=== PATIENT | male | born 1945 | race African-American/Black ===

== ENCOUNTER 2018-06-16 18:49 | Inpatient (IN) | payer MEDICARE, MEDICAID ==
[~2018-06-16] VITALS: Ht 175.3 cm; Wt 58.7 kg
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
[2018-06-16 19:30] VITALS: BP 89/69
[2018-06-16] MEDS ORDERED: Isovue-300 100ml vial INJ PRN (19:45)
[2018-06-16] MEDS ORDERED: Isovue-370 150ml vial INJ PRN (19:45)
[2018-06-16 20:12] LABS: BASOPHILS % (AUTO) 0.9 % (0.0-2.0); EOSINOPHILS % (AUTO) 1.6 % (0.0-3.0); HEMOGLOBIN 10.2 G/DL (14.2-18.0); MEAN CORPUSCULAR VOLUME 86 FL (80-99); MONOCYTES % (AUTO) 12.8 % (1.0-10.0); NEUTROPHILS % (AUTO) 73.7 % (45.0-75.0); PLATELET COUNT 174 K/UL (150-450); RED BLOOD COUNT 3.73 M/UL (4.70-6.10); RED CELL DISTRIBUTION WIDTH 16.2 % (11.6-14.8); WHITE BLOOD COUNT 9.1 K/UL (4.8-10.8)
[2018-06-16 20:19] LABS: ANION GAP 14 mmol/L (5-15); BLOOD UREA NITROGEN 54 mg/dL (7-18); CARBON DIOXIDE 19 MMOL/L (21-32); CHLORIDE 104 MMOL/L (98-107); CREATININE 4.3 MG/DL (0.55-1.30); POTASSIUM 3.9 MMOL/L (3.5-5.1); SODIUM 137 MMOL/L (136-145)
[2018-06-16 20:25] LABS: INR 1.3 (0.9-1.1)
[2018-06-16 20:30] VITALS: BP 106/69
[2018-06-16 20:34] LABS: ALANINE AMINOTRANSFERASE 8 U/L (12-78); ALBUMIN 1.8 G/DL (3.4-5.0); ALBUMIN/GLOBULIN RATIO 0.4 (1.0-2.7); ALKALINE PHOSPHATASE 71 U/L (46-116); ASPARTATE AMINO TRANSFERASE 11 U/L (15-37); BILIRUBIN,TOTAL 0.2 MG/DL (0.2-1.0); CKMB 1.3 NG/ML (0.0-3.6); CREATINE KINASE 34 U/L (26-308); PHOSPHORUS 4.5 MG/DL (2.5-4.9)
[2018-06-16] MEDS ORDERED: CARVEDILOL3.125 MG ORAL (20:42)
[2018-06-16] MEDS ORDERED: ASPIRIN81 MG ORAL (20:42)
[2018-06-16] MEDS ORDERED: COLCRYS0.6 M1 PO ×2 (20:42→20:46)
[2018-06-16] MEDS ORDERED: CYPROHEPTADINE H4 MG PO (20:42)
[2018-06-16] MEDS ORDERED: FUROSEMIDE20 M1 ORAL (20:46)
[2018-06-16] MEDS ORDERED: GLIPIZIDE10 MG PO (20:46)
[2018-06-16] MEDS ORDERED: NORCO 10-325 T1 EACH ORAL (20:46)
[2018-06-16] MEDS ORDERED: PROCARDIA XL30 MG ORAL (20:52)
[2018-06-16] MEDS ORDERED: PREDNISONE5 M3 PO (20:52)
[2018-06-16] MEDS ORDERED: MAG-OX 400400 MG ORAL (20:52)
[2018-06-16] MEDS ORDERED: PANTOPRAZOLE SO40 MG ORAL (20:52)
[2018-06-16] MEDS ORDERED: CRESTOR20 MG ORAL (20:52)
[2018-06-16] MEDS ORDERED: ISOSORBIDE MONO30 M1 PO (20:52)
[2018-06-16] MEDS ORDERED: FISH OIL 1,2001 EAC2 PO (20:52)
[2018-06-16] MEDS ORDERED: RAPAMUNE1 MG/1 ML PO (20:55)
[2018-06-16] MEDS ORDERED: TACROLIMUS1 MG PO (20:55)
[2018-06-16] MEDS ORDERED: BRILINTA90 MG PO (20:55)
[2018-06-16] MEDS ORDERED: SOMA350 MG PO (20:55)
[2018-06-16 21:01] LABS: APPEARANCE,URINE CLOUDY; BILIRUBIN, URINE NEGATIVE (NEGATIVE); COLOR,URINE YELLOW; GLUCOSE, URINE (UA) NEGATIVE (NEGATIVE); KETONES,URINE NEGATIVE (NEGATIVE); LEUKOCYTE ESTERASE ,URINE 3+ (NEGATIVE); NITRITE,URINE NEGATIVE (NEGATIVE); PH,URINE 5 (4.5-8.0); PROTEIN,URINE 3+ (NEGATIVE); UROBILINOGEN,URINE NORMAL MG/DL (0.0-1.0)
[2018-06-16] MEDS ORDERED: cefTRIAXone 1 GM in D5W 55 ML IVPB ONE (21:15)
[2018-06-16 21:30] VITALS: BP 110/59
[2018-06-16 22:30] VITALS: BP 105/62
[2018-06-16 23:11] VITALS: BP 109/72
[2018-06-17] MEDS ORDERED: HYDROcodone/Acetamin 10/325 tab ORAL PRN
[2018-06-17] MEDS ORDERED: Albuterol/Ipratropium 3ml neb HHN PRN
[2018-06-17 04:00] VITALS: BP 125/77
[2018-06-17 05:16] LABS: BASOPHILS % (AUTO) 0.6 % (0.0-2.0); EOSINOPHILS % (AUTO) 1.2 % (0.0-3.0); HEMATOCRIT 40.5 % (42.0-52.0); HEMOGLOBIN 12.1 G/DL (14.2-18.0); MEAN CORPUSCULAR VOLUME 87 FL (80-99); MONOCYTES % (AUTO) 12.8 % (1.0-10.0); NEUTROPHILS % (AUTO) 71.3 % (45.0-75.0); PLATELET COUNT 227 K/UL (150-450); RED BLOOD COUNT 4.64 M/UL (4.70-6.10); RED CELL DISTRIBUTION WIDTH 16.4 % (11.6-14.8); WHITE BLOOD COUNT 8.9 K/UL (4.8-10.8)
[2018-06-17 05:43] LABS: ANION GAP 18 mmol/L (5-15); BLOOD UREA NITROGEN 53 mg/dL (7-18); CALCIUM 8.3 MG/DL (8.5-10.1); CARBON DIOXIDE 18 MMOL/L (21-32); CHLORIDE 104 MMOL/L (98-107); CHOLESTEROL 156 MG/DL (< 200); HDL CHOLESTEROL 25 MG/DL (40-60); SODIUM 140 MMOL/L (136-145); TRIGLYCERIDES 175 MG/DL (30-150)
[2018-06-17] MEDS: NovoLOG Insulin Flexpen SUBQ SCH ×4 (06:39→21:12)
--- NOTE | 2018-06-17 07:49 | Cardiology Progress Note ---
Assessment/Plan Assessment/Plan The patient is seen and examined, full consult note will be dictated shortly. Objective Last 24 Hour Vital Signs Date Time Temp Pulse Resp B/P (MAP) Pulse Ox O2 Delivery O2 Flow Rate FiO2 06/17/18 04:00 97.3 85 20 125/77 (93) 94 97.3 06/17/18 04:00 3.0 06/17/18 04:00 Nasal Cannula 3.0 06/17/18 04:00 85 06/17/18 01:26 Nasal Cannula 3.0 06/16/18 23:11 97.3 75 20 109/72 (84) 94 97.3 06/16/18 23:10 98.8 83 18 105/62 95 Room Air 3.0 98.8 06/16/18 22:30 98.8 83 18 105/62 95 Room Air 3.0 98.8 06/16/18 21:30 98.8 84 18 110/59 96 Room Air 3.0 98.8 06/16/18 20:30 98.8 84 20 106/69 94 Room Air 3.0 98.8 06/16/18 19:30 98.8 85 21 89/69 98 Room Air 3.0 98.8 06/16/18 19:20 80 20 Room Air 06/16/18 18:54 98.8 80 20 80/50 100 Room Air 98.8 Intake and Output 06/16/18 06/17/18 19:00 07:00 Intake Total 2000 ml Output Total 300 ml Balance 1700 ml Intake IV Total 2000 ml Output Urine Total 300 ml Laboratory Tests Test 06/16/18 19:40 06/16/18 20:40 06/16/18 21:40 06/17/18 03:57 White Blood Count 9.1 K/UL (4.8-10.8) 8.9 K/UL (4.8-10.8) Red Blood Count 3.73 M/UL (4.70-6.10) L 4.64 M/UL (4.70-6.10) L Hemoglobin 10.2 G/DL (14.2-18.0) L 12.1 G/DL (14.2-18.0) L Hematocrit 32.0 % (42.0-52.0) L 40.5 % (42.0-52.0) L Mean Corpuscular Volume 86 FL (80-99) 87 FL (80-99) Mean Corpuscular Hemoglobin 27.4 PG (27.0-31.0) 26.2 PG (27.0-31.0) L Mean Corpuscular Hemoglobin Concent 31.9 G/DL (32.0-36.0) L 30.0 G/DL (32.0-36.0) L Red Cell Distribution Width 16.2 % (11.6-14.8) H 16.4 % (11.6-14.8) H Platelet Count 174 K/UL (150-450) 227 K/UL (150-450) Mean Platelet Volume 7.3 FL (6.5-10.1) 7.8 FL (6.5-10.1) Neutrophils (%) (Auto) 73.7 % (45.0-75.0) 71.3 % (45.0-75.0) Lymphocytes (%) (Auto) 11.0 % (20.0-45.0) L 14.0 % (20.0-45.0) L Monocytes (%) (Auto) 12.8 % (1.0-10.0) H 12.8 % (1.0-10.0) H Eosinophils (%) (Auto) 1.6 % (0.0-3.0) 1.2 % (0.0-3.0) Basophils (%) (Auto) 0.9 % (0.0-2.0) 0.6 % (0.0-2.0) Prothrombin Time 14.0 SEC (9.30-11.50) H Prothromb Time International Ratio 1.3 (0.9-1.1) H Activated Partial Thromboplast Time 22 SEC (23-33) L Sodium Level 137 MMOL/L (136-145) 140 MMOL/L (136-145) Potassium Level 3.9 MMOL/L (3.5-5.1) 4.0 MMOL/L (3.5-5.1) Chloride Level 104 MMOL/L (98-107) 104 MMOL/L (98-107) Carbon Dioxide Level 19 MMOL/L (21-32) L 18 MMOL/L (21-32) L Anion Gap 14 mmol/L (5-15) 18 mmol/L (5-15) H Blood Urea Nitrogen 54 mg/dL (7-18) H 53 mg/dL (7-18) H Creatinine 4.3 MG/DL (0.55-1.30) H 4.0 MG/DL (0.55-1.30) H Estimat Glomerular Filtration Rate mL/min (>60) mL/min (>60) Glucose Level 209 MG/DL (74-106) H 147 MG/DL (74-106) H Lactic Acid Level 2.10 mmol/L (0.4-2.0) H 1.70 mmol/L (0.66-2.22) Calcium Level 8.0 MG/DL (8.5-10.1) L 8.3 MG/DL (8.5-10.1) L Phosphorus Level 4.5 MG/DL (2.5-4.9) Magnesium Level 1.9 MG/DL (1.8-2.4) Total Bilirubin 0.2 MG/DL (0.2-1.0) Aspartate Amino Transf (AST/SGOT) 11 U/L (15-37) L Alanine Aminotransferase (ALT/SGPT) 8 U/L (12-78) L Alkaline Phosphatase 71 U/L (46-116) Total Creatine Kinase 34 U/L (26-308) Creatine Kinase MB 1.3 NG/ML (0.0-3.6) Creatine Kinase MB Relative Index 3.8 Troponin I 0.124 ng/mL (0.000-0.056) Pro-B-Type Natriuretic Peptide > 73347 pg/mL (0-125) H Total Protein 6.5 G/DL (6.4-8.2) Albumin 1.8 G/DL (3.4-5.0) L Globulin 4.7 g/dL Albumin/Globulin Ratio 0.4 (1.0-2.7) L Lipase 122 U/L (73-393) Urine Color Yellow Urine Appearance Cloudy Urine pH 5 (4.5-8.0) Urine Specific [place] 1.015 (1.005-1.035) Urine Protein 3+ (NEGATIVE) H Urine Glucose (UA) Negative (NEGATIVE) Urine Ketones Negative (NEGATIVE) Urine Occult Blood 4+ (NEGATIVE) H Urine Nitrite Negative (NEGATIVE) Urine Bilirubin Negative (NEGATIVE) Urine Urobilinogen Normal MG/DL (0.0-1.0) Urine Leukocyte Esterase 3+ (NEGATIVE) H Urine RBC 10-15 /HPF (0 - 0) H Urine WBC Tntc /HPF (0 - 0) H Urine Squamous Epithelial Cells Many /LPF (NONE/OCC) H Urine Bacteria Many /HPF (NONE) H Triglycerides Level 175 MG/DL (30-150) H Cholesterol Level 156 MG/DL (< 200) LDL Cholesterol 104 mg/dL (<100) H HDL Cholesterol 25 MG/DL (40-60) L Cholesterol/HDL Ratio 6.2 (3.3-4.4) H Tacrolimus (Prograf) Level Pending Test 06/17/18 06:40 Urine Eosinophils Pending Urine Random Creatinine Pending Urine Random Sodium 32 mmol/L (20-110) Urine Creatinine 168.0 MG/DL (30.0-125.0) H Urine Uric Acid Pending Kelvin Tenorio MD Jun 17, 2018 07:49
[2018-06-17 08:00] VITALS: BP 128/77
--- NOTE | 2018-06-17 08:24 | Diagnostic Imaging Report ---
Indication: Reason For Exam: SOB Technique: One view of the chest Comparison: none Findings: Lungs and pleural spaces are clear. Monitoring device projects over the left chest. There is evidence of prior CABG. The heart size is normal Impression: No acute process
--- NOTE | 2018-06-17 08:49 | Consultation ---
Consult Note Assessment/Plan DICT # [id number] Cam Moran MD Jun 17, 2018 08:49
[2018-06-17] MEDS: Imdur 30mg tab ORAL SCH (08:58)
[2018-06-17] MEDS: Aspirin Baby 81mg ORAL SCH (08:59)
[2018-06-17] MEDS: Cyproheptadine HCl 4mg tab ORAL SCH ×3 (09:00→17:16)
[2018-06-17] MEDS ORDERED: SIROLIMUS 0.5 MG ORAL SCH (09:00)
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
--- NOTE | 2018-06-17 09:26 | Diagnostic Imaging Report ---
Indications: Altered mental status and weakness Technique: Spiral acquisitions obtained through the brain. Angled axial and coronal 5 x 5 mm slices were reconstructed. Total dose length product 1322.86 mGycm. CTDI vol(s) 70.38 mGy. Dose reduction achieved using automated exposure control Comparison: Findings: Two old lacunar infarcts are seen in the right lentiform nucleus. There is an old infarct in the right cerebellar hemisphere. There is an old lacunar infarct in the right side of the midbrain. No acute intrarenal hemorrhage or edema, mass effect, nor midline shift. There is age-related enlargement of ventricles and extra-axial CSF spaces. There is periventricular deep white matter low-attenuation consistent with chronic ischemic change. Visualized orbits and sinuses are unremarkable. The calvarium is intact Impression: Chronic and age-related changes. Multiple old infarcts. Negative for acute intracranial bleed or mass effect This agrees with the preliminary interpretation provided overnight by [facility]. The CT scanner at [facility] is accredited by the [employer] and the scans are performed using protocols designed to limit radiation exposure to as low as reasonably achievable to attain images of sufficient resolution adequate for diagnostic evaluation.
[2018-06-17] MEDS: SIROLIMUS 0.5 MG ORAL SCH (09:35)
[2018-06-17 10:47] LABS: % IRON SATURATION 8 % (15-50); IRON 15 ug/dL (50-175); TOTAL IRON BINDING CAPACITY 197 ug/dL (250-450)
[2018-06-17 11:16] LABS: FERRITIN 170 NG/ML (8-388); LACTATE DEHYDROGENASE 226 U/L (81-234)
[2018-06-17] MEDS ORDERED: Azithromycin 250mg tab ORAL SCH (11:17)
--- NOTE | 2018-06-17 11:48 | Consultation ---
History of Present Illness General Date patient seen: Jun 17, 2018 Chief Complaint: Dyspnea/Respdistress Present Illness HPI The pt is 72 yo male with hx of cognitive impairment. the patient presents with complaints of weakness and confusion, the pt was a poor historian. It is noted that the pt was aaox4 however the pt didnt know the month nor the date. the pt is forgetful and has cognitive impairment. The pt stated that he was depressed about his situation. The pt was a poor historian the pt stated that he leaves at home and has a child care associate. Allergies: Coded Allergies: No Known Allergies (Unverified , 06/16/18) Medication History Scheduled Aspirin* (Aspirin*), 81 MG ORAL DAILY, (Reported) Carvedilol* (Carvedilol*), 3.125 MG ORAL EVERY 12 HOURS, (Reported) Cyproheptadine Hcl (Cyproheptadine Hcl), 4 MG PO BID, (Reported) Fish Oil/Dha/Epa (Fish Oil 1,200 Mg Fish Oil), 1 EACH PO BID, (Reported) Furosemide* (Lasix*), 20 MG ORAL DAILY, (Reported) Glipizide (Glipizide), 10 MG PO BID, (Reported) Isosorbide Mononitrate (Isosorbide Mononitrate Er), 30 MG PO DAILY, (Reported) Magnesium Oxide (Magnesium Oxide), 400 MG ORAL BID, (Reported) Nifedipine Xl* (Procardia Xl*), 60 MG ORAL DAILY, (Reported) Pantoprazole* (Pantoprazole*), 40 MG ORAL DAILY, (Reported) Prednisone (Prednisone), 5 MG PO DAILY, (Reported) Rosuvastatin Calcium* (Crestor*), 20 MG ORAL HS, (Reported) Sirolimus (Rapamune), 1 MG PO DAILY, (Reported) Ticagrelor* (Brilinta*), 90 MG PO BID, (Reported) Scheduled PRN Carisoprodol* (Soma*), 350 MG PO TID PRN for Muscle Spasm, (Reported) Colchicine (Colcrys), 0.6 MG PO Q1HR PRN for gout flares, (Reported) Hydrocodone Bit/Acetaminophen 10-325* ([place] 10-325*), 1 TAB ORAL Q6H PRN for For Pain, (Reported) Miscellaneous Medications Tacrolimus (Tacrolimus), 4 MG PO, (Reported) Patient History Limited by: medical condition History Provided By: Patient, Medical Record, PMD Healthcare decision maker N Resuscitation status Full Code Advanced Directive on File No Past Medical/Surgical History Past Medical/Surgical History: (1) Cardiomegaly (2) Hypotension Review of Systems Psychiatric: Reports: prior hx, anxiety Physical Exam General Appearance: no apparent distress, alert Neurologic: oriented x 3, depressed affect Last 24 Hour Vital Signs Date Time Temp Pulse Resp B/P (MAP) Pulse Ox O2 Delivery O2 Flow Rate FiO2 06/17/18 08:59 95 128/77 06/17/18 08:58 128/77 06/17/18 08:30 94 Nasal Cannula 3.0 32 06/17/18 08:30 Nasal Cannula 3.0 32 06/17/18 08:00 95 06/17/18 08:00 Nasal Cannula 3.0 06/17/18 08:00 97.9 95 20 128/77 (94) 95 97.9 06/17/18 04:00 97.3 85 20 125/77 (93) 94 97.3 06/17/18 04:00 3.0 06/17/18 04:00 Nasal Cannula 3.0 06/17/18 04:00 85 06/17/18 01:26 Nasal Cannula 3.0 06/16/18 23:11 97.3 75 20 109/72 (84) 94 97.3 06/16/18 23:10 98.8 83 18 105/62 95 Room Air 3.0 98.8 06/16/18 22:30 98.8 83 18 105/62 95 Room Air 3.0 98.8 06/16/18 21:30 98.8 84 18 110/59 96 Room Air 3.0 98.8 06/16/18 20:30 98.8 84 20 106/69 94 Room Air 3.0 98.8 06/16/18 19:30 98.8 85 21 89/69 98 Room Air 3.0 98.8 06/16/18 19:20 80 20 Room Air 06/16/18 18:54 98.8 80 20 80/50 100 Room Air 98.8 Intake and Output 06/16/18 06/17/18 19:00 07:00 Intake Total 2000 ml Output Total 300 ml Balance 1700 ml Intake IV Total 2000 ml Output Urine Total 300 ml Laboratory Tests Test 06/16/18 19:40 06/16/18 20:40 06/16/18 21:40 06/17/18 03:57 White Blood Count 9.1 K/UL (4.8-10.8) 8.9 K/UL (4.8-10.8) Red Blood Count 3.73 M/UL (4.70-6.10) L 4.64 M/UL (4.70-6.10) L Hemoglobin 10.2 G/DL (14.2-18.0) L 12.1 G/DL (14.2-18.0) L Hematocrit 32.0 % (42.0-52.0) L 40.5 % (42.0-52.0) L Mean Corpuscular Volume 86 FL (80-99) 87 FL (80-99) Mean Corpuscular Hemoglobin 27.4 PG (27.0-31.0) 26.2 PG (27.0-31.0) L Mean Corpuscular Hemoglobin Concent 31.9 G/DL (32.0-36.0) L 30.0 G/DL (32.0-36.0) L Red Cell Distribution Width 16.2 % (11.6-14.8) H 16.4 % (11.6-14.8) H Platelet Count 174 K/UL (150-450) 227 K/UL (150-450) Mean Platelet Volume 7.3 FL (6.5-10.1) 7.8 FL (6.5-10.1) Neutrophils (%) (Auto) 73.7 % (45.0-75.0) 71.3 % (45.0-75.0) Lymphocytes (%) (Auto) 11.0 % (20.0-45.0) L 14.0 % (20.0-45.0) L Monocytes (%) (Auto) 12.8 % (1.0-10.0) H 12.8 % (1.0-10.0) H Eosinophils (%) (Auto) 1.6 % (0.0-3.0) 1.2 % (0.0-3.0) Basophils (%) (Auto) 0.9 % (0.0-2.0) 0.6 % (0.0-2.0) Prothrombin Time 14.0 SEC (9.30-11.50) H Prothromb Time International Ratio 1.3 (0.9-1.1) H Activated Partial Thromboplast Time 22 SEC (23-33) L Sodium Level 137 MMOL/L (136-145) 140 MMOL/L (136-145) Potassium Level 3.9 MMOL/L (3.5-5.1) 4.0 MMOL/L (3.5-5.1) Chloride Level 104 MMOL/L (98-107) 104 MMOL/L (98-107) Carbon Dioxide Level 19 MMOL/L (21-32) L 18 MMOL/L (21-32) L Anion Gap 14 mmol/L (5-15) 18 mmol/L (5-15) H Blood Urea Nitrogen 54 mg/dL (7-18) H 53 mg/dL (7-18) H Creatinine 4.3 MG/DL (0.55-1.30) H 4.0 MG/DL (0.55-1.30) H Estimat Glomerular Filtration Rate mL/min (>60) mL/min (>60) Glucose Level 209 MG/DL (74-106) H 147 MG/DL (74-106) H Lactic Acid Level 2.10 mmol/L (0.4-2.0) H 1.70 mmol/L (0.66-2.22) Calcium Level 8.0 MG/DL (8.5-10.1) L 8.3 MG/DL (8.5-10.1) L Phosphorus Level 4.5 MG/DL (2.5-4.9) Magnesium Level 1.9 MG/DL (1.8-2.4) Total Bilirubin 0.2 MG/DL (0.2-1.0) Aspartate Amino Transf (AST/SGOT) 11 U/L (15-37) L Alanine Aminotransferase (ALT/SGPT) 8 U/L (12-78) L Alkaline Phosphatase 71 U/L (46-116) Total Creatine Kinase 34 U/L (26-308) Creatine Kinase MB 1.3 NG/ML (0.0-3.6) Creatine Kinase MB Relative Index 3.8 Troponin I 0.124 ng/mL (0.000-0.056) Pro-B-Type Natriuretic Peptide > 36654 pg/mL (0-125) H Total Protein 6.5 G/DL (6.4-8.2) Albumin 1.8 G/DL (3.4-5.0) L Globulin 4.7 g/dL Albumin/Globulin Ratio 0.4 (1.0-2.7) L Lipase 122 U/L (73-393) Urine Color Yellow Urine Appearance Cloudy Urine pH 5 (4.5-8.0) Urine Specific [place] 1.015 (1.005-1.035) Urine Protein 3+ (NEGATIVE) H Urine Glucose (UA) Negative (NEGATIVE) Urine Ketones Negative (NEGATIVE) Urine Occult Blood 4+ (NEGATIVE) H Urine Nitrite Negative (NEGATIVE) Urine Bilirubin Negative (NEGATIVE) Urine Urobilinogen Normal MG/DL (0.0-1.0) Urine Leukocyte Esterase 3+ (NEGATIVE) H Urine RBC 10-15 /HPF (0 - 0) H Urine WBC Tntc /HPF (0 - 0) H Urine Squamous Epithelial Cells Many /LPF (NONE/OCC) H Urine Bacteria Many /HPF (NONE) H Triglycerides Level 175 MG/DL (30-150) H Cholesterol Level 156 MG/DL (< 200) LDL Cholesterol 104 mg/dL (<100) H HDL Cholesterol 25 MG/DL (40-60) L Cholesterol/HDL Ratio 6.2 (3.3-4.4) H Tacrolimus (Prograf) Level Pending Test 06/17/18 06:40 06/17/18 09:00 06/17/18 09:30 Urine Eosinophils None seen Urine Random Creatinine Pending Urine Random Sodium 32 mmol/L (20-110) Urine Creatinine 168.0 MG/DL (30.0-125.0) H Urine Uric Acid Pending Erythrocyte Sedimentation Rate 95 MM/HR (0-20) H Reticulocyte Count 1.6 % (0.0-2.0) Fibrinogen 797 mg/dL (200-400) H D-Dimer 10.06 mg/L FEU (0.00-0.49) H Iron Level 15 ug/dL (50-175) L Total Iron Binding Capacity 197 ug/dL (250-450) L Percent Iron Saturation 8 % (15-50) L Unsaturated Iron Binding 182 ug/dL (112-346) Ferritin 170 NG/ML (8-388) Lactate Dehydrogenase 226 U/L (81-234) Troponin I 0.258 ng/mL (0.000-0.056) Vitamin B12 Level 1076 PG/ML (193-986) H Folate 10.2 NG/ML (8.6-58.9) Arterial Blood pH 7.393 (7.350-7.450) Arterial Blood Partial Pressure CO2 27.7 mmHg (35.0-45.0) L Arterial Blood Partial Pressure O2 65.3 mmHg (75.0-100.0) L Arterial Blood HCO3 16.5 mmol/L (22.0-26.0) L Arterial Blood Oxygen Saturation 90.3 % (92.0-98.0) L Arterial Blood Base Excess -7.1 Francois Test Positive Microbiology Date/Time Source Procedure Growth Status 06/16/18 20:40 Urine,Clean Catch Urine Culture - Preliminary NO GROWTH Resulted Height (Feet): 5 Height (Inches): 9.00 Weight (Pounds): 129 Medications Current Medications Medications (Trade) Dose Ordered Sig/Trung Route PRN Reason Start Time Stop Time Status Last Admin Dose Admin Acetaminophen (Tylenol) 650 mg Q6H PRN ORAL Mild Pain/Temp > 100.5 06/17/18 00:00 07/17/18 00:00 Acetaminophen/ Hydrocodone Bitart ([place] 10/325) 1 tab Q4H PRN ORAL For Pain 06/17/18 00:00 06/24/18 00:00 Albuterol/ Ipratropium (Albuterol/ Ipratropium) 3 ml Q4H PRN HHN Shortness of Breath 06/17/18 00:00 06/22/18 00:00 Aspirin (ASA) 81 mg DAILY ORAL 06/17/18 09:00 07/17/18 08:59 06/17/18 08:59 Azithromycin (Zithromax) 250 mg DAILY ORAL 06/18/18 09:00 06/25/18 08:59 Azithromycin (Zithromax) 500 mg ONCE ORAL 06/17/18 11:17 06/17/18 12:17 Carvedilol (Coreg) 3.125 mg EVERY 12 HOURS ORAL 06/17/18 09:00 07/17/18 08:59 06/17/18 08:59 Ceftriaxone Sodium 1 gm/ Dextrose 55 ml @ 110 mls/hr Q24H IVPB 06/17/18 21:00 06/24/18 20:59 Clopidogrel Bisulfate (Plavix) 75 mg DAILY ORAL 06/18/18 09:00 07/18/18 08:59 Cyproheptadine HCl (Periactin) 4 mg THREE TIMES A DAY ORAL 06/17/18 09:00 07/17/18 08:59 06/17/18 09:00 Dextrose (Dextrose 50%) 25 ml STAT PRN IV Hypoglycemia 06/17/18 00:00 07/17/18 00:00 Dextrose (Dextrose 50%) 50 ml STAT PRN IV Hypoglycemia 06/17/18 00:00 07/17/18 00:00 Insulin Aspart (NovoLOG) AC+HS SUBQ 06/17/18 06:30 07/17/18 06:29 06/17/18 06:39 Iopamidol (Isovue-300 100ml) 100 ml NOW PRN INJ Radiology Procedure 06/16/18 19:45 Iopamidol (Isovue-370 150ml) 150 ml NOW PRN INJ Radiology Procedure 06/16/18 19:45 06/18/18 19:36 Isosorbide Mononitrate (Imdur) 30 mg DAILY ORAL 06/17/18 09:00 07/17/18 08:59 06/17/18 08:58 Non-Formulary Medication (Non-Formulary Med) 1 ea DAILY ORAL 06/17/18 09:00 07/17/18 08:59 UNV Non-Formulary Medication (Non-Formulary Med) 1 ea DAILY ORAL 06/17/18 09:00 07/17/18 08:59 UNV Non-Formulary Medication (Non-Formulary Med) 1 ea DAILY ORAL 06/17/18 09:00 07/17/18 08:59 UNV Ondansetron HCl (Zofran) 4 mg Q6H PRN IVP Nausea & Vomiting 06/17/18 00:00 07/17/18 00:00 Pantoprazole (Protonix) 40 mg EVERY 12 HOURS ORAL 06/17/18 09:00 07/17/18 08:59 06/17/18 08:59 Prednisone (predniSONE) 5 mg DAILY ORAL 06/17/18 09:00 07/17/18 08:59 06/17/18 08:59 Sirolimus (Rapamune) 1 mg DAILY ORAL 06/17/18 09:30 07/17/18 09:29 06/17/18 09:35 Tacrolimus (Prograf) 3 mg Q24HRS ORAL 06/17/18 16:00 07/17/18 15:59 Tacrolimus (Prograf) 4 mg DAILY ORAL 06/17/18 09:00 07/17/18 08:59 06/17/18 09:00 Assessment/Plan Status: stable, progressing Assessment/Plan encephalopathy improving anxiety d/o -Ativan prn the pt may benefit from short term sniff Umu Rojas MD Jun 17, 2018 11:48
[2018-06-17 12:00] VITALS: BP 107/63
--- NOTE | 2018-06-17 13:25 | Diagnostic Imaging Report ---
Indication: Abnormal renal function tests Technique: Grayscale and duplex images of the kidneys, retroperitoneum, and bladder were obtained. Comparison: none Findings: Right kidney measures 9.5 cm in length. Left kidney measures 8.2 cm in length. Both kidneys demonstrate increased echogenicity. No hydronephrosis. There are renal cysts bilaterally. Normal inferior vena cava. Bladder is mildly distended. Secondary to prostate volume is 25 mL. Prostate contains calcifications Impression: Echogenic kidneys, consistent with medical renal disease Negative for hydronephrosis. Incidental finding bilateral renal cysts
--- NOTE | 2018-06-17 13:39 | General Progress Note ---
Assessment/Plan Assessment/Plan Addendum to todays consult note Spiculated 2.7 cm mass in the superior segment of the right lower lobe with a central cavity. Differential considerations include postinflammatory lesion versus cavitating lung carcinoma, Small right pleural effusion --> further management if needs biopsy per pulm, Dr. Moran will discuss Subjective Allergies: Coded Allergies: No Known Allergies (Unverified , 06/16/18) Objective Last 24 Hour Vital Signs Date Time Temp Pulse Resp B/P (MAP) Pulse Ox O2 Delivery O2 Flow Rate FiO2 06/17/18 12:00 Nasal Cannula 3.0 06/17/18 12:00 91 06/17/18 12:00 97.7 91 20 107/63 (78) 96 97.7 06/17/18 08:59 95 128/77 06/17/18 08:58 128/77 06/17/18 08:30 94 Nasal Cannula 3.0 32 06/17/18 08:30 Nasal Cannula 3.0 32 06/17/18 08:00 95 06/17/18 08:00 Nasal Cannula 3.0 06/17/18 08:00 97.9 95 20 128/77 (94) 95 97.9 06/17/18 04:00 97.3 85 20 125/77 (93) 94 97.3 06/17/18 04:00 3.0 06/17/18 04:00 Nasal Cannula 3.0 06/17/18 04:00 85 06/17/18 01:26 Nasal Cannula 3.0 06/16/18 23:11 97.3 75 20 109/72 (84) 94 97.3 06/16/18 23:10 98.8 83 18 105/62 95 Room Air 3.0 98.8 06/16/18 22:30 98.8 83 18 105/62 95 Room Air 3.0 98.8 06/16/18 21:30 98.8 84 18 110/59 96 Room Air 3.0 98.8 06/16/18 20:30 98.8 84 20 106/69 94 Room Air 3.0 98.8 06/16/18 19:30 98.8 85 21 89/69 98 Room Air 3.0 98.8 06/16/18 19:20 80 20 Room Air 06/16/18 18:54 98.8 80 20 80/50 100 Room Air 98.8 Intake and Output 06/16/18 06/17/18 19:00 07:00 Intake Total 2000 ml Output Total 300 ml Balance 1700 ml Intake IV Total 2000 ml Output Urine Total 300 ml Laboratory Tests 06/16/18 19:40: White Blood Count 9.1, Red Blood Count 3.73L, Hemoglobin 10.2L, Hematocrit 32.0L , Mean Corpuscular Volume 86, Mean Corpuscular Hemoglobin 27.4, Mean Corpuscular Hemoglobin Concent 31.9L, Red Cell Distribution Width 16.2H, Platelet Count 174, Mean Platelet Volume 7.3, Neutrophils (%) (Auto) 73.7, Lymphocytes (%) (Auto) 11.0L, Monocytes (%) (Auto) 12.8H, Eosinophils (%) (Auto ) 1.6, Basophils (%) (Auto) 0.9, Prothrombin Time 14.0H, Prothromb Time International Ratio 1.3H, Activated Partial Thromboplast Time 22L, Sodium Level 137, Potassium Level 3.9, Chloride Level 104, Carbon Dioxide Level 19L, Anion Gap 14, Blood Urea Nitrogen 54H, Creatinine 4.3H, Estimat Glomerular Filtration Rate , Glucose Level 209H, Lactic Acid Level 2.10H, Calcium Level 8.0L, Phosphorus Level 4.5, Magnesium Level 1.9, Total Bilirubin 0.2, Aspartate Amino Transf (AST/SGOT) 11L, Alanine Aminotransferase (ALT/SGPT) 8L, Alkaline Phosphatase 71, Total Creatine Kinase 34, Creatine Kinase MB 1.3, Creatine Kinase MB Relative Index 3.8, Troponin I 0.124H, Pro-B-Type Natriuretic Peptide > [id number], Total Protein 6.5, Albumin 1.8L, Globulin 4.7, Albumin/Globulin Ratio 0.4L, Lipase 122 06/16/18 20:40: Urine Color Yellow, Urine Appearance Cloudy, Urine pH 5, Urine Specific [place] 1.015, Urine Protein 3+H, Urine Glucose (UA) Negative, Urine Ketones Negative, Urine Occult Blood 4+H, Urine Nitrite Negative, Urine Bilirubin Negative, Urine Urobilinogen Normal, Urine Leukocyte Esterase 3+H, Urine RBC 10-15H, Urine WBC TntcH, Urine Squamous Epithelial Cells ManyH, Urine Bacteria ManyH 06/16/18 21:40: Lactic Acid Level 1.70 06/17/18 03:57: White Blood Count 8.9, Red Blood Count 4.64L, Hemoglobin 12.1L, Hematocrit 40.5L , Mean Corpuscular Volume 87, Mean Corpuscular Hemoglobin 26.2L, Mean Corpuscular Hemoglobin Concent 30.0L, Red Cell Distribution Width 16.4H, Platelet Count 227, Mean Platelet Volume 7.8, Neutrophils (%) (Auto) 71.3, Lymphocytes (%) (Auto) 14.0L, Monocytes (%) (Auto) 12.8H, Eosinophils (%) (Auto ) 1.2, Basophils (%) (Auto) 0.6, Sodium Level 140, Potassium Level 4.0, Chloride Level 104, Carbon Dioxide Level 18L, Anion Gap 18H, Blood Urea Nitrogen 53H, Creatinine 4.0H, Estimat Glomerular Filtration Rate , Glucose Level 147H, Calcium Level 8.3L, Triglycerides Level 175H, Cholesterol Level 156 , LDL Cholesterol 104H, HDL Cholesterol 25L, Cholesterol/HDL Ratio 6.2H, Tacrolimus (Prograf) Level [Pending] 06/17/18 06:40: Urine Eosinophils None seen, Urine Random Creatinine [Pending], Urine Random Sodium 32, Urine Creatinine 168.0H, Urine Uric Acid [Pending] 06/17/18 09:00: Erythrocyte Sedimentation Rate 95H, Reticulocyte Count 1.6, Fibrinogen 797H, D- Dimer 10.06H, Iron Level 15L, Total Iron Binding Capacity 197L, Percent Iron Saturation 8L, Unsaturated Iron Binding 182, Ferritin 170, Lactate Dehydrogenase 226, Troponin I 0.258H, Vitamin B12 Level 1076H, Folate 10.2 06/17/18 09:30: Arterial Blood pH 7.393, Arterial Blood Partial Pressure CO2 27.7L, Arterial Blood Partial Pressure O2 65.3L, Arterial Blood HCO3 16.5L, Arterial Blood Oxygen Saturation 90.3L, Arterial Blood Base Excess -7.1, Francois Test Positive Height (Feet): 5 Height (Inches): 9.00 Weight (Pounds): 129 Tunde Silva MD Jun 17, 2018 13:39
--- NOTE | 2018-06-17 14:49 | Cardiology Report ---
APPROVED REPORT EXAM: Two-dimensional and M-mode echocardiogram with Doppler and color Doppler. INDICATION Cardiomyopathy M-Mode DIMENSIONS IVSd1.8 (0.7-1.1cm)Left Atrium (MM)3.2 (1.6-4.0cm) LVDd3.5 (3.5-5.6cm)Aortic Root3.5 (2.0-3.7cm) PWd1.2 (0.7-1.1cm)Aortic Cusp Exc.1.8 (1.5-2.0cm) IVSs2.2 cm LVDs2.8 (2.5-4.0cm) PWs1.1 cm Global left ventricular hypokinesis . Normal left ventricular chamber size . Left ventricular ejection fraction estimated to be 40-45 %. Moderate left ventricular hypertrophy by 2-D. No evidence of pericardial effusion. All other cardiac chamber sizes are within normal limits. Focal aortic valve sclerosis with adequate cusp excursion. Thickened mitral valve leaflets with normal excursion. Mitral annulus and aortic root calcification. Pulmonic valve not well visualized. Normal tricuspid valve structure. IVC dilated at 1.9 cm without physiologic collapse suggestive of increased RA pressure. A color flow and spectral Doppler study was performed and revealed: No aortic regurgitation. Trace to Moderate mitral regurgitation. Mitral inflow velocities indicates possible pseudo normalization pattern implying moderately elevated left atrial pressure (Grade II ). Moderate tricuspid regurgitation Present . Tricuspid systolic velocities suggests peak right ventricular systolic pressure of 88 mmHg,consistent with severe pulmonary hypertension. Mild Pulmonic regurgitation present.
--- NOTE | 2018-06-17 14:53 | Cardiology Report ---
APPROVED REPORT EKG Measurement Heart [id number] Normal sinus rhythm Lateral infarct, age undetermined Prolonged QT Abnormal ECG
--- NOTE | 2018-06-17 14:54 | Cardiology Report ---
APPROVED REPORT EKG Measurement Heart [id number] Normal sinus rhythm Rightward axis Anteroseptal infarct, age undetermined Prolonged QT Abnormal ECG
--- NOTE | 2018-06-17 15:19 | Consultation ---
Consult Note Consult Note asked to eval for renal failure Chief Complaint: Dyspnea/Respdistress Patient presents with complaints of weakness Patient himself is a fairly poor historian Is not able to provide much history Denies any chest pain he did report some shortness of breath Patient has a patch on the left upper chest was not aware why he had that on Patient denies any recent hospitalizations Does not have medication list Denies any focal weakness denies any fevers denies any cough History of present illness however remains limited given his ability to provide history Hx Cardiac Problems: Yes - Heart transplant 1987 Hx Pacemaker: Yes patient confused- has UTI Has a base line Cr of 3 as per [facility] records now worse Assessment/Plan Renal Failure- Acute on Chronic Cardiomyopathy- s/p Cardiac transplant Pulmonary HTN 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
[2018-06-17 16:00] VITALS: BP 129/71
--- NOTE | 2018-06-17 16:45 | Consultation ---
DATE OF CONSULTATION: 06/17/2018 PULMONARY CONSULTATION CONSULTING PHYSICIAN: Cam Moran M.D. REFERRING PHYSICIAN: Jovanny Washington M.D. REASON FOR CONSULTATION: Dyspnea and shortness of breath. HISTORY OF PRESENT ILLNESS: The patient is a 72-year-old male with a history of orthotopic heart transplant in 04/04/1998 with known transplant CAD, status post recent drug-eluting stent in [place] x1 to the RCA for 80% stenosis and x2 to the mid LAD. At that time, the patient's PA pressure was 47/25. He had been in his usual state of health until a few days ago when he started noticing some generalized confusion and shortness of breath. He is a poor historian. He has a ZIO patch, but he is unsure why or when it may have been placed at the [facility]. In the ER, he was hypotensive and initially received fluids. He was noted to have UTI and acute kidney injury on top of his CKD. He has been admitted for further management. Overnight, he has been afebrile. Vitals have been stable. He has been saturating well on 3 liters. Chest x-ray is unchanged from prior other than the UA. Labs are remarkable for MÓNICA with creatinine of 4.3 on admission compared to baseline of high 2, low 3. He also had elevated BNP and troponin. PAST MEDICAL HISTORY: 1. Orthotopic heart transplant . 2. Transplant CAD. 3. CKD. 4. Diabetes. 5. Stroke in the past. PAST SURGICAL HISTORY: 1. Orthotopic heart transplant, 04/04/1998. 2. Multiple interventions. ALLERGIES: No known drug allergies. MEDICATIONS: Prior to admission, medications reviewed. Current medications reviewed. SOCIAL HISTORY: Denies any tobacco, alcohol, or drug use. FAMILY HISTORY: Noncontributory. REVIEW OF SYSTEMS: Negative other than history of present illness. PHYSICAL EXAMINATION: VITAL SIGNS: Temperature 97.3, pulse 75, blood pressure 109/72, respiratory rate 20, and saturating 94% on 3 liters. GENERAL: This is a well-developed, well-nourished male, in no acute distress. Awake, alert, and oriented x3. HEENT: Normocephalic and atraumatic. Oropharynx is clear with moist mucous membranes. NECK: Supple without lymphadenopathy or JVD. CHEST: Fairly clear to auscultation bilaterally. There is a ZIO patch on. HEART: Regular rate and rhythm. ABDOMEN: Soft, nontender, and nondistended. EXTREMITIES: No cyanosis, clubbing or edema. ANCILLARY DATA: White count 8.9, hemoglobin 12.1, and platelet count 227. INR 1.3. Sodium 140, potassium 4.0, chloride 104, bicarb 18, gap 18, BUN 53, creatinine 4.0, glucose 147. Lactic acid 2.1 on presentation, 1.7 now. Calcium 8.3, phosphorus 4.5, magnesium 1.9. Total bilirubin 0.2, AST , ALT 8. Troponin 0.124. BNP greater than 35,000. Albumin 1.8. Triglycerides 175, total cholesterol 156, LDL 104, HDL 25. Chest x-ray, no significant findings. Sternotomy changes are noted. Urinalysis, the patient has 3+ leukocyte esterase, too many to count whites and too many to count bacteria. ASSESSMENT: The patient is a 72-year-old male with a history of orthotopic heart transplant 04/04/1998 with transplant coronary artery disease, status post recent drug-eluting stent x1 in the RCA and x2 in the mid LAD 03/19/2018, post transplant diabetes, CKD, prior CVA, presenting with UTI and hypotension. He does not appear to be in decompensated heart failure at that time though he does have some RV depression. I am evaluating the patient at the bedside with Dr. Tenorio, tire rebuilder. An echocardiogram is being done at the same time. The patient's PA pressure is not significantly changed from prior and he does not have elevated filling pressures. PROBLEM LIST: 1. Orthotopic heart transplant, 04/04/1998. 2. Transplant coronary artery disease with recent PCI 03/19/2018 with drug-eluting stent x2 to the mid LAD and x1 to the RCA. 3. MÓNICA on CKD. 4. UTI. 5. Pulmonary hypertension and RV failure. 6. Diabetes. 7. Elevated cardiac biomarkers. TREATMENT PLAN: 1. Continue PCU level care. 2. Gentle IV fluid hydration. 3. Continue antibiotics. 4. Follow up cultures. 5. Hold Lasix. 6. Continue transplant medications including tacrolimus 4 mg in the morning/3 mg at night, Rapamune and prednisone 5 mg a day. 7. Follow up tacrolimus level. 8. Follow up repeat EKG and troponin. 9. Continue dual anti-platelet therapy. 10. Continue remainder of cardiac regimen. 11. If stroke is up trending, we will consider starting a heparin drip. 12. Follow up duplex and D-dimer. 13. If duplex negative and D-dimer negative, we will get a VQ scan. 14. Aspiration precautions. 15. NPO. 16. DVT prophylaxis, heparin subcutaneous. 17. A transplant team at [facility] notified. 18. Low threshold to transfer to [facility] to the Cardiomyopathy service. 19. Case discussed with Dr. Tenorio, at bedside, Dr. Washington and Dr. Hayes, the ER attending overnight. 20. [facility] Cardiomyopathy service notified. 21. Greater than 100 minutes spent in the care of this patient. Cam Moran M.D. DR: SIDDHARTHA JOB#: [id number] CC:
[2018-06-17 20:00] VITALS: BP 108/67
[2018-06-17] MEDS ORDERED: cefTRIAXone 1 GM in D5W 55 ML IVPB SCH (21:00)
[2018-06-17] MEDS ORDERED: Atorvastatin 20mg tab ORAL SCH (21:00)
--- NOTE | 2018-06-17 22:00 | Consultation ---
DATE OF CONSULTATION: 06/17/2018 INFECTIOUS DISEASE CONSULTATION CONSULTING PHYSICIAN: Sami Leiva M.D. PRIMARY ATTENDING PHYSICIAN: Jovanny Washington M.D. REASON FOR CONSULT: Lung cavitary mass lesions. HISTORY OF PRESENT ILLNESS: This is a 72-year-old male, admitted yesterday from home, complaining of weakness. The patient had heart transplant 20 years ago and taking immunosuppressive medication. He had lactic acidosis and seems to have acute renal failure. A CT scan of the chest showed cavitary lung lesion. PAST MEDICAL HISTORY: Significant for diabetes mellitus type 2, getting oral hypoglycemic agent at home, COPD, and heart transplant 20 years ago. MEDICATIONS: Getting Plavix, tacrolimus, sirolimus, carvedilol, Protonix, and some non-formalin medications, prednisone 5 mg daily, aspirin, cyproheptadine, isosorbide, albuterol and ipratropium, Tylenol, and [place]. ALLERGIES: No known drug allergies. SOCIAL HISTORY: He has a remote history of smoking before heart transplant. No drinking. Smokes weed sometimes. Single. Has a daughter. REVIEW OF SYSTEMS: No fever. No chills. He thinks he has gradual weight loss. Had weakness around one week ago. No coughing. No shortness of breath. No nausea. No vomiting. No diarrhea. No problem passing urine. PHYSICAL EXAMINATION: VITAL SIGNS: Temperature 97.9, pulse 95, and blood pressure 128/77. GENERAL APPEARANCE: No acute distress. Seems to be weak. HEAD AND NECK: [place] conjunctiva. No oral lesion. Slightly dry mouth. HEART: A scar of previous surgery. Has some monitor that was placed one week ago in [facility]. LUNGS: Clear. ABDOMEN: Soft and nontender. EXTREMITIES: No edema. LABORATORY AND DIAGNOSTIC DATA: WBC 8.9, hemoglobin 12.1, hematocrit 40.5, and platelets 227,000. Sodium 140, potassium 4, chloride 104, bicarb 18, BUN 53, creatinine 4, and glucose 147. CT scan of the head, chronic ____ changes with multiple old infarcts. CT scan of the chest, abdomen, and pelvis showed a spiculated mass in the right lower lobe with central cavity, COPD, bronchiectasis, areas of scarring, distended gallbladder without evidence of wall thickening and gallstone, colon diverticulosis, and non-obstructing right kidney calculus. IMPRESSION: Elderly male with a lung mass with cavitary lesion. The patient is immunocompromised because of taking immunosuppressive medication. Has chronic obstructive pulmonary disease and diabetes mellitus. Had lactic acidosis at the time of admission that resolved. Has colonic diverticulosis and distended gallbladder without cholecystitis and is status post heart transplant. RECOMMENDATION: We will try to obtain more information from [facility] and [facility]. We will start on ceftriaxone. We will follow up the cultures. We will discuss the case with signal worker helper. At the end of my exam, I thank Dr. Washington for involving me in the care of this patient. Sami Leiva M.D. DR: DOC JOB#: [id number] CC:
--- NOTE | 2018-06-17 23:15 | Consultation ---
DATE OF CONSULTATION: 06/17/2018 NOTE: POOR AUDIO HEMATOLOGY/ONCOLOGY CONSULTATION CONSULTING PHYSICIAN: Tunde Silva M.D. REQUESTING PHYSICIAN: Jovanny Washington M.D. REASON FOR CONSULTATION: Evaluation of anemia as well as coagulopathy. IDENTIFICATION DATA: Dear Dr. Washington, The patient is a pleasant 72-year-old male with history of heart transplant in 1987, history of pacemaker placement, at this time presents with shortness of breath, respiratory distress. Chest x-ray completed acute infiltrative process. The patient noted to be anemic at this time. Hematology Service consulted for further evaluation and treatment. In addition, the patient has coagulopathy. This is the first admission here, seen by Cardiology Service. PAST MEDICAL HISTORY: Heart transplant in 1987 and history of UTI. PAST SURGICAL HISTORY: . ALLERGIES: No known drug allergies. FAMILY HISTORY: . SOCIAL HISTORY: No alcohol, tobacco, or illicit drug use. REVIEW OF SYSTEMS: CONSTITUTIONAL: No fever, chills, or night sweats. SKIN: No rashes, bumps, or itching. HEENT: No headache, hearing or visual changes. BREASTS: No lumps, pain, or discharge. PULMONARY: No cough, sputum . GASTROINTESTINAL: No nausea, vomiting, or diarrhea. GENITOURINARY: No dysuria, frequency, or urgency. MUSCULOSKELETAL: No joint swelling, muscle pain, or trauma. PHYSICAL EXAMINATION: VITAL SIGNS: Reviewed. GENERAL: No acute distress. PULMONARY: Decreased breath sounds. CARDIOVASCULAR: Regular rate. No S3 or S4. ABDOMEN: Soft, nontender, and nondistended. EXTREMITIES: No cyanosis, swelling, or edema noted. LABORATORY DATA: Labs reviewed, hemoglobin 10.5 on admission and INR of 1.3. ASSESSMENT AND RECOMMENDATIONS: 1. Anemia due to underlying chronic disease in addition to myelosuppression. Obtain anemia panel. 2. Monocytosis, likely secondary to reactive process. The patient has been checked for TB in the past. today. 3. Hypertension. . 4. likely secondary to sepsis secondary to urinary tract infection. 5. Heart transplant history. . 6. Urinary tract infection, currently has been started on antibiotics. 7. Shortness of breath. CT of the chest negative. I appreciate the consultation. Tunde Silva M.D. DR: ANANYA JOB#: [id number] CC:
--- NOTE | 2018-06-17 23:30 | History and Physical Report ---
DATE OF ADMISSION: 06/16/2018 HISTORY OF PRESENT ILLNESS: The patient is admitted for hypotension and cardiomyopathy. The patient is status post heart transplant since [address] [facility], comes in with weakness and shortness of breath for a couple of days. The patient is admitted for hypotension. The patient also recently had STEMI at [facility] about a month ago. He also came in with acute elevation in BUN and creatinine and possible UTI as well. The patient does have some dysuria, but mainly complains weakness and shortness of breath. Denies worsening orthopnea. Denies any chest pain. Also complains of foot pain. PAST MEDICAL HISTORY: Significant for cardiomyopathy, chronic pain syndrome, hypotension, history of gout, history of NIDDM, hypertension, GERD, and hyperlipidemia. PAST SURGICAL HISTORY: Heart transplant in 1997 at [facility]. MEDICATIONS: Aspirin, Coreg, cyproheptadine, fish oil, Lasix, glipizide, isosorbide mononitrate, nifedipine, Protonix, prednisone, Crestor, sirolimus, and Brilinta. FAMILY HISTORY: Does have history of heart disease and hypertension. SOCIAL HISTORY: The patient does have history of smoking and history of drug abuse. Denies alcohol abuse. He lives at home with girlfriend. REVIEW OF SYSTEMS: HEENT: Denies headaches. RESPIRATORY: He reports shortness of breath for a couple of days. Denies cough. Denies flu-like symptoms. CARDIOVASCULAR: Denies chest pain. Denies orthopnea. Denies palpitation. GASTROINTESTINAL: Denies nausea, vomiting, and diarrhea. He does have heartburn at times. EXTREMITY: Reports of foot pain. MANAGER ER: No change in vision or speech pattern. Feels very weak for the past couple of days. Generalized weakness. No diplopia. No headaches. PHYSICAL EXAMINATION: VITAL SIGNS: Temperature is 97.3, pulse is 85, and blood pressure 125/77. HEENT: PERRLA. NECK: Supple. No lymphadenopathy. CHEST: Clear to auscultation. CARDIOVASCULAR: He does have heart murmur. GASTROINTESTINAL: No organomegaly. Positive bowel sounds. Abdomen is soft. EXTREMITIES: A 1+ edema in both lower extremities. Has generalized weakness. Reflexes are equal on both sides. LABORATORY DATA: WBC of 9.1, hemoglobin 10.2, and platelets 174,000. Sodium 140, potassium 4, chloride 104, BUN of 53, creatinine 4, and glucose of 147. ASSESSMENT: 1. Shortness of breath. 2. Weakness. 3. Cardiomyopathy, status post cardiac implant. 4. Azotemia. 5. Acute renal failure. PLAN: The patient the patient was in [facility]. I have asked Dr. Moran, Dr. Leiva, Dr. Silva, Dr. Tenorio, and Dr. Covington to see the patient for the management of above-mentioned diagnoses and treatment. The patient is very weak at this point. We will follow the patient very closely. Jovanny Washington M.D. DR: ANDRZEJ JOB#: [id number] CC:
[2018-06-18] VITALS: BP 110/72
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
[2018-06-18 04:00] VITALS: BP 130/84
[2018-06-18 04:50] LABS: BASOPHILS % (AUTO) 0.6 % (0.0-2.0); EOSINOPHILS % (AUTO) 0.9 % (0.0-3.0); HEMATOCRIT 30.6 % (42.0-52.0); HEMOGLOBIN 9.4 G/DL (14.2-18.0); MEAN CORPUSCULAR VOLUME 87 FL (80-99); MONOCYTES % (AUTO) 13.7 % (1.0-10.0); NEUTROPHILS % (AUTO) 71.8 % (45.0-75.0); PLATELET COUNT 229 K/UL (150-450); RED CELL DISTRIBUTION WIDTH 16.5 % (11.6-14.8); WHITE BLOOD COUNT 8.3 K/UL (4.8-10.8)
[2018-06-18 05:25] LABS: PHOSPHORUS 3.7 MG/DL (2.5-4.9)
[2018-06-18 05:27] LABS: ALANINE AMINOTRANSFERASE 15 U/L (12-78); ALBUMIN 2.6 G/DL (3.4-5.0); ALBUMIN/GLOBULIN RATIO 0.5 (1.0-2.7); ALKALINE PHOSPHATASE 78 U/L (46-116); ANION GAP 18 mmol/L (5-15); ASPARTATE AMINO TRANSFERASE 17 U/L (15-37); BILIRUBIN,TOTAL 0.3 MG/DL (0.2-1.0); BLOOD UREA NITROGEN 52 mg/dL (7-18); CALCIUM 8.6 MG/DL (8.5-10.1); CARBON DIOXIDE 17 MMOL/L (21-32); CHLORIDE 106 MMOL/L (98-107); POTASSIUM 3.4 MMOL/L (3.5-5.1); SODIUM 141 MMOL/L (136-145)
[2018-06-18] MEDS: NovoLOG Insulin Flexpen SUBQ SCH ×3 (06:43→16:21)
[2018-06-18 08:00] VITALS: BP 125/70
[2018-06-18] MEDS ORDERED: Allopurinol 100mg Tab ORAL SCH (08:00)
--- NOTE | 2018-06-18 08:31 | General Progress Note ---
Assessment/Plan Status: unchanged Assessment/Plan # Anemia due to underlying chronic disease in addition to myelosuppression. --> Anemia panel has been reviewed. Will trend CBC daily. --> Continue to closely monitor for improvement. --> Hgb goal >7 # Speculated 2.7 cm mass in the superior segment of the right lower lobe with a central cavity. Differential considerations include postinflammatory lesion versus cavitating lung carcinoma, Small right pleural effusion. --> further management if needs biopsy per pulm, Dr. Moran will discuss. # Monocytosis, likely secondary to reactive process. he patient has been checked for TB in the past. --> likely secondary to sepsis and UTI. --> Continue to closely monitor WBC count sundeep improvement. # Elevated D-d-didmer - started on unfractionated heparin until V/Q scan back --> appreciate pulm recs, await results of v/q scan # Hypertension. # Heart transplant history. # Urinary tract infection, currently has been started on antibiotics. # Shortness of breath. The time the note was entered does not necessarily correspond to the time the patient was seen. Subjective Date patient seen: Jun 18, 2018 ROS Limited/Unobtainable: Yes Hematologic/Lymphatic: Reports: anemia Allergies: Coded Allergies: No Known Allergies (Unverified , 06/16/18) All Systems: reviewed and negative except above Subjective Pt is awake and alert. No acute events. Vitals are stable. Objective Last 24 Hour Vital Signs Date Time Temp Pulse Resp B/P (MAP) Pulse Ox O2 Delivery O2 Flow Rate FiO2 06/18/18 08:21 92 06/18/18 04:00 92 06/18/18 04:00 Nasal Cannula 3.0 06/18/18 04:00 98.1 93 20 130/84 (99) 94 98.1 06/18/18 00:00 97.4 93 20 110/72 (85) 97 97.4 06/18/18 00:00 93 06/18/18 00:00 Nasal Cannula 3.0 06/17/18 20:53 97 108/67 06/17/18 20:06 Nasal Cannula 3.0 32 06/17/18 20:06 96 Nasal Cannula 3.0 32 06/17/18 20:00 Nasal Cannula 3.0 06/17/18 20:00 97.5 95 20 108/67 (81) 94 97.5 06/17/18 20:00 97 06/17/18 16:00 98.2 94 20 129/71 (90) 92 98.2 06/17/18 16:00 Nasal Cannula 3.0 06/17/18 16:00 101 06/17/18 12:00 Nasal Cannula 3.0 06/17/18 12:00 91 06/17/18 12:00 97.7 91 20 107/63 (78) 96 97.7 06/17/18 08:59 95 128/77 06/17/18 08:58 128/77 06/17/18 08:30 94 Nasal Cannula 3.0 32 06/17/18 08:30 Nasal Cannula 3.0 32 Intake and Output 06/17/18 06/18/18 19:00 07:00 Intake Total 1000 ml 55 ml Output Total 200 ml Balance 1000 ml -145 ml Intake Oral 500 ml IV Total 500 ml 55 ml Output Urine Total 200 ml # Voids 2 Laboratory Tests 06/17/18 09:00: Erythrocyte Sedimentation Rate 95H, Reticulocyte Count 1.6, Fibrinogen 797H, D- Dimer 10.06H, Iron Level 15L, Total Iron Binding Capacity 197L, Percent Iron Saturation 8L, Unsaturated Iron Binding 182, Ferritin 170, Lactate Dehydrogenase 226, Troponin I 0.258H, Vitamin B12 Level 1076H, Folate 10.2 06/17/18 09:30: Arterial Blood pH 7.393, Arterial Blood Partial Pressure CO2 27.7L, Arterial Blood Partial Pressure O2 65.3L, Arterial Blood HCO3 16.5L, Arterial Blood Oxygen Saturation 90.3L, Arterial Blood Base Excess -7.1, Francois Test Positive 06/17/18 15:15: Troponin I 0.220H, C-Reactive Protein, Quantitative 12.6H 06/17/18 21:00: Troponin I 0.179H 06/18/18 01:05: Histoplasma Antigen [Pending] 06/18/18 03:53: White Blood Count 8.3, Red Blood Count 3.50L, Hemoglobin 9.4L, Hematocrit 30.6L , Mean Corpuscular Volume 87, Mean Corpuscular Hemoglobin 26.8L, Mean Corpuscular Hemoglobin Concent 30.7L, Red Cell Distribution Width 16.5H, Platelet Count 229, Mean Platelet Volume 8.1, Neutrophils (%) (Auto) 71.8, Lymphocytes (%) (Auto) 13.0L, Monocytes (%) (Auto) 13.7H, Eosinophils (%) (Auto ) 0.9, Basophils (%) (Auto) 0.6, Sodium Level 141, Potassium Level 3.4L, Chloride Level 106, Carbon Dioxide Level 17L, Anion Gap 18H, Blood Urea Nitrogen 52H, Creatinine 4.0H, Estimat Glomerular Filtration Rate , Glucose Level 120H, Uric Acid 12.0H, Calcium Level 8.6, Phosphorus Level 3.7, Magnesium Level 2.1, Total Bilirubin 0.3, Aspartate Amino Transf (AST/SGOT) 17, Alanine Aminotransferase (ALT/SGPT) 15, Alkaline Phosphatase 78, Troponin I 0.206H, Pro- B-Type Natriuretic Peptide [id number], Total Protein 7.5, Albumin 2.6L, Globulin 4.9, Albumin/Globulin Ratio 0.5L, Thyroid Stimulating Hormone (TSH) 0.468, Coccidioides Antibody (Comp Fix) [Pending], TB Test (T-Spot) [Pending], TB Test Nil Control (T-Spot) [Pending], TB Test Panel A (T-Spot) [Pending], TB Test Panel B (T-Spot) [Pending], TB Test Positive Control (T-Spot) [Pending] Height (Feet): 5 Height (Inches): 9.00 Weight (Pounds): 129 General Appearance: no apparent distress, alert EENT: PERRL/EOMI Neck: normal alignment Cardiovascular: normal peripheral pulses Respiratory/Chest: no respiratory distress Abdomen: soft Tunde Silva MD Jun 18, 2018 08:31
[2018-06-18] MEDS: Cyproheptadine HCl 4mg tab ORAL SCH ×2 (08:37→13:35)
[2018-06-18] MEDS: Aspirin Baby 81mg ORAL SCH (08:37)
[2018-06-18] MEDS: SIROLIMUS 0.5 MG ORAL SCH (08:38)
[2018-06-18] MEDS: Imdur 30mg tab ORAL SCH (08:39)
--- NOTE | 2018-06-18 08:49 | Pulmonology Progress Note ---
Assessment/Plan Problems: (1) UTI (urinary tract infection) (2) MÓNICA (acute kidney injury) (3) Elevated d-dimer (4) NSTEMI (non-ST elevated myocardial infarction) (5) CAD (coronary artery disease) (6) Heart transplant, orthotopic, status (7) Cardiomyopathy Assessment/Plan ASSESSMENT: The patient is a 72-year-old male with a history of orthotopic heart transplant 04/04/1998 with transplant coronary artery disease, status post recent drug-eluting stent x1 in the RCA and x2 in the mid LAD 2017, post transplant diabetes, CKD, prior CVA, presenting with UTI and hypotension. He does not appear to be in decompensated heart failure at that time though he does have some RV depression. Given his elevated d-dimer and PASP, we will start IVUH for now while awaiting a STAT VQ scan. PROBLEM LIST: 1. Orthotopic heart transplant, 04/04/1998. 2. Transplant coronary artery disease with recent PCI 03/19/2018 with drug- eluting stent x2 to the mid LAD and x1 to the RCA. 3. MÓNICA on CKD. 4. UTI. 5. Pulmonary hypertension and RV failure. 6. Diabetes. 7. Elevated cardiac biomarkers. 8. Elevated D-dimer and worsening PH, concerning for an acute PE TREATMENT PLAN: 1. Start IVUH 2. F/U STAT VQ 2. Gentle diuresis 3. Continue antibiotics. 4. Follow up cultures. 5. F/U prograf level 6. Continue transplant medications including tacrolimus 4 mg in the morning/3 mg at night, Rapamune 1 mg and prednisone 5 mg a day. 7. Continue DAPT and cardiac meds 8. Transfer to [facility], D/W Dr. Josey Moran MD Subjective Allergies: Coded Allergies: No Known Allergies (Unverified , 06/16/18) Subjective I/O not accurate: 1999/ (had at least 2 unmeasured urinations) AFVSS, stable on 3L TTE LVEF 40-45% with global hypokinesis PASP 88 with mod TR, IVC 1.9cm not collapsible D-dimer > 10k, Duplex negative, IVUH started /// Renal US no hydro + SOB, no cough, no CP, no wheezing, no F/C, inderjit PO Objective Last 24 Hour Vital Signs Date Time Temp Pulse Resp B/P (MAP) Pulse Ox O2 Delivery O2 Flow Rate FiO2 06/18/18 08:21 92 06/18/18 08:00 Nasal Cannula 3.0 06/18/18 04:00 92 06/18/18 04:00 Nasal Cannula 3.0 06/18/18 04:00 98.1 93 20 130/84 (99) 94 98.1 06/18/18 00:00 97.4 93 20 110/72 (85) 97 97.4 06/18/18 00:00 93 06/18/18 00:00 Nasal Cannula 3.0 06/17/18 20:53 97 108/67 06/17/18 20:06 Nasal Cannula 3.0 32 06/17/18 20:06 96 Nasal Cannula 3.0 32 06/17/18 20:00 Nasal Cannula 3.0 06/17/18 20:00 97.5 95 20 108/67 (81) 94 97.5 06/17/18 20:00 97 06/17/18 16:00 98.2 94 20 129/71 (90) 92 98.2 06/17/18 16:00 Nasal Cannula 3.0 06/17/18 16:00 101 06/17/18 12:00 Nasal Cannula 3.0 06/17/18 12:00 91 06/17/18 12:00 97.7 91 20 107/63 (78) 96 97.7 06/17/18 08:59 95 128/77 06/17/18 08:58 128/77 Intake and Output 06/17/18 06/18/18 19:00 07:00 Intake Total 1000 ml 55 ml Output Total 200 ml Balance 1000 ml -145 ml Intake Oral 500 ml IV Total 500 ml 55 ml Output Urine Total 200 ml # Voids 2 General Appearance: WD/WN, no acute distress HEENT: normocephalic, atraumatic, anicteric, mucous membranes moist Respiratory/Chest: chest wall non-tender, lungs clear, normal breath sounds, no respiratory distress Cardiovascular: normal peripheral pulses, normal rate, regular rhythm, other - P2 Abdomen: normal bowel sounds, soft, non tender, no organomegaly, non distended , no mass Extremities: no cyanosis, no clubbing, no edema Microbiology Date/Time Source Procedure Growth Status 06/16/18 19:40 Blood Blood Culture - Preliminary NO GROWTH AFTER 24 HOURS Resulted 06/16/18 19:25 Blood Blood Culture - Preliminary NO GROWTH AFTER 24 HOURS Resulted 06/16/18 20:40 Urine,Clean Catch Urine Culture - Preliminary NO GROWTH Resulted Laboratory Tests 06/17/18 09:00: Erythrocyte Sedimentation Rate 95H, Reticulocyte Count 1.6, Fibrinogen 797H, D- Dimer 10.06H, Iron Level 15L, Total Iron Binding Capacity 197L, Percent Iron Saturation 8L, Unsaturated Iron Binding 182, Ferritin 170, Lactate Dehydrogenase 226, Troponin I 0.258H, Vitamin B12 Level 1076H, Folate 10.2 06/17/18 09:30: Arterial Blood pH 7.393, Arterial Blood Partial Pressure CO2 27.7L, Arterial Blood Partial Pressure O2 65.3L, Arterial Blood HCO3 16.5L, Arterial Blood Oxygen Saturation 90.3L, Arterial Blood Base Excess -7.1, Francois Test Positive 06/17/18 15:15: Troponin I 0.220H, C-Reactive Protein, Quantitative 12.6H 06/17/18 21:00: Troponin I 0.179H 06/18/18 01:05: Histoplasma Antigen [Pending] 06/18/18 03:53: White Blood Count 8.3, Red Blood Count 3.50L, Hemoglobin 9.4L, Hematocrit 30.6L , Mean Corpuscular Volume 87, Mean Corpuscular Hemoglobin 26.8L, Mean Corpuscular Hemoglobin Concent 30.7L, Red Cell Distribution Width 16.5H, Platelet Count 229, Mean Platelet Volume 8.1, Neutrophils (%) (Auto) 71.8, Lymphocytes (%) (Auto) 13.0L, Monocytes (%) (Auto) 13.7H, Eosinophils (%) (Auto ) 0.9, Basophils (%) (Auto) 0.6, Sodium Level 141, Potassium Level 3.4L, Chloride Level 106, Carbon Dioxide Level 17L, Anion Gap 18H, Blood Urea Nitrogen 52H, Creatinine 4.0H, Estimat Glomerular Filtration Rate , Glucose Level 120H, Uric Acid 12.0H, Calcium Level 8.6, Phosphorus Level 3.7, Magnesium Level 2.1, Total Bilirubin 0.3, Aspartate Amino Transf (AST/SGOT) 17, Alanine Aminotransferase (ALT/SGPT) 15, Alkaline Phosphatase 78, Troponin I 0.206H, Pro- B-Type Natriuretic Peptide 130590F, Total Protein 7.5, Albumin 2.6L, Globulin 4.9, Albumin/Globulin Ratio 0.5L, Thyroid Stimulating Hormone (TSH) 0.468, Coccidioides Antibody (Comp Fix) [Pending], TB Test (T-Spot) [Pending], TB Test Nil Control (T-Spot) [Pending], TB Test Panel A (T-Spot) [Pending], TB Test Panel B (T-Spot) [Pending], TB Test Positive Control (T-Spot) [Pending] Current Medications Medications (Trade) Dose Ordered Sig/Trung Route PRN Reason Start Time Stop Time Status Last Admin Dose Admin Acetaminophen (Tylenol) 650 mg Q6H PRN ORAL Mild Pain/Temp > 100.5 06/17/18 00:00 07/17/18 00:00 Acetaminophen/ Hydrocodone Bitart ([place] 10/325) 1 tab Q4H PRN ORAL For Pain 06/17/18 00:00 06/24/18 00:00 Albuterol/ Ipratropium (Albuterol/ Ipratropium) 3 ml Q4H PRN HHN Shortness of Breath 06/17/18 00:00 06/22/18 00:00 Allopurinol (Zyloprim) 200 mg ONCE ORAL 06/18/18 08:00 06/18/18 09:00 Aspirin (ASA) 81 mg DAILY ORAL 06/17/18 09:00 07/17/18 08:59 06/17/18 08:59 Atorvastatin Calcium (Lipitor) 20 mg BEDTIME ORAL 06/17/18 21:00 07/17/18 20:59 06/17/18 20:52 Azithromycin (Zithromax) 250 mg DAILY ORAL 06/18/18 09:00 06/25/18 08:59 Carvedilol (Coreg) 3.125 mg EVERY 12 HOURS ORAL 06/17/18 09:00 07/17/18 08:59 06/17/18 20:53 Ceftriaxone Sodium 1 gm/ Dextrose 55 ml @ 110 mls/hr Q24H IVPB 06/17/18 21:00 06/24/18 20:59 06/17/18 20:52 Clopidogrel Bisulfate (Plavix) 75 mg DAILY ORAL 06/18/18 09:00 07/18/18 08:59 Cyproheptadine HCl (Periactin) 4 mg THREE TIMES A DAY ORAL 06/17/18 09:00 07/17/18 08:59 06/17/18 17:16 Dextrose (Dextrose 50%) 25 ml STAT PRN IV Hypoglycemia 06/17/18 00:00 07/17/18 00:00 Dextrose (Dextrose 50%) 50 ml STAT PRN IV Hypoglycemia 06/17/18 00:00 07/17/18 00:00 Insulin Aspart (NovoLOG) AC+HS SUBQ 06/17/18 06:30 07/17/18 06:29 06/18/18 06:43 Iopamidol (Isovue-300 100ml) 100 ml NOW PRN INJ Radiology Procedure 06/16/18 19:45 Iopamidol (Isovue-370 150ml) 150 ml NOW PRN INJ Radiology Procedure 06/16/18 19:45 06/18/18 19:36 Isosorbide Mononitrate (Imdur) 30 mg DAILY ORAL 06/17/18 09:00 07/17/18 08:59 06/17/18 08:58 Ondansetron HCl (Zofran) 4 mg Q6H PRN IVP Nausea & Vomiting 06/17/18 00:00 07/17/18 00:00 Pantoprazole (Protonix) 40 mg EVERY 12 HOURS ORAL 06/17/18 09:00 07/17/18 08:59 06/17/18 20:52 Potassium Chloride (K-Dur) 20 meq ONCE ORAL 06/18/18 08:15 06/18/18 09:15 Prednisone (predniSONE) 5 mg DAILY ORAL 06/17/18 09:00 07/17/18 08:59 06/17/18 08:59 Sirolimus (Rapamune) 1 mg DAILY ORAL 06/17/18 09:30 07/17/18 09:29 06/17/18 09:35 Tacrolimus (Prograf) 3 mg Q24HRS ORAL 06/17/18 16:00 07/17/18 15:59 06/17/18 16:04 Tacrolimus (Prograf) 4 mg DAILY ORAL 06/17/18 09:00 07/17/18 08:59 06/17/18 09:00 Cam Moran MD Jun 18, 2018 08:49
[2018-06-18] MEDS ORDERED: Azithromycin 250mg tab ORAL SCH (09:00)
[2018-06-18] MEDS ORDERED: Heparin 5000 units/ml inj IV SCH ×2 (09:08→16:53)
[2018-06-18] MEDS ORDERED: Heparin 25,000u/D5W 500ml 500 ML IV SCH ×2 (10:00→17:02)
[2018-06-18 10:06] LABS: BASOPHILS % (AUTO) 0.7 % (0.0-2.0); EOSINOPHILS % (AUTO) 1.4 % (0.0-3.0); HEMATOCRIT 32.5 % (42.0-52.0); HEMOGLOBIN 9.8 G/DL (14.2-18.0); MEAN CORPUSCULAR VOLUME 87 FL (80-99); MONOCYTES % (AUTO) 16.7 % (1.0-10.0); NEUTROPHILS % (AUTO) 68.3 % (45.0-75.0); PLATELET COUNT 229 K/UL (150-450); RED BLOOD COUNT 3.74 M/UL (4.70-6.10); RED CELL DISTRIBUTION WIDTH 16.3 % (11.6-14.8); WHITE BLOOD COUNT 8.3 K/UL (4.8-10.8)
--- NOTE | 2018-06-18 10:28 | Nephrology Progress Note ---
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 Encephalopathy UTI Anemia HypoAlbuminemia 3+ proteinuria Plan Albumin Bollous as needed Avoid Nephrotoxics- AntiBiotics monitor renal parameters one dose Zaroxyllin Subjective ROS Limited/Unobtainable: No Constitutional: Reports: malaise, weakness Objective Objective Last 24 Hour Vital Signs Date Time Temp Pulse Resp B/P (MAP) Pulse Ox O2 Delivery O2 Flow Rate FiO2 06/18/18 08:39 125/70 06/18/18 08:38 91 125/70 06/18/18 08:21 92 06/18/18 08:00 97.9 91 18 125/70 (88) 95 97.9 06/18/18 08:00 Nasal Cannula 3.0 06/18/18 04:00 92 06/18/18 04:00 Nasal Cannula 3.0 06/18/18 04:00 98.1 93 20 130/84 (99) 94 98.1 06/18/18 00:00 97.4 93 20 110/72 (85) 97 97.4 06/18/18 00:00 93 06/18/18 00:00 Nasal Cannula 3.0 06/17/18 20:53 97 108/67 06/17/18 20:06 Nasal Cannula 3.0 32 06/17/18 20:06 96 Nasal Cannula 3.0 32 06/17/18 20:00 Nasal Cannula 3.0 06/17/18 20:00 97.5 95 20 108/67 (81) 94 97.5 06/17/18 20:00 97 06/17/18 16:00 98.2 94 20 129/71 (90) 92 98.2 06/17/18 16:00 Nasal Cannula 3.0 06/17/18 16:00 101 06/17/18 12:00 Nasal Cannula 3.0 06/17/18 12:00 91 06/17/18 12:00 97.7 91 20 107/63 (78) 96 97.7 Intake and Output 06/17/18 06/18/18 18:59 06:59 Intake Total 1000 ml 55 ml Output Total 200 ml Balance 1000 ml -145 ml Intake Oral 500 ml IV Total 500 ml 55 ml Output Urine Total 200 ml # Voids 2 Laboratory Tests 06/17/18 15:15: Troponin I 0.220H, C-Reactive Protein, Quantitative 12.6H 06/17/18 21:00: Troponin I 0.179H 06/18/18 01:05: Histoplasma Antigen [Pending] 06/18/18 03:53: Troponin I 0.206H, White Blood Count 8.3, Red Blood Count 3.50L, Hemoglobin 9.4L , Hematocrit 30.6L, Mean Corpuscular Volume 87, Mean Corpuscular Hemoglobin 26.8L, Mean Corpuscular Hemoglobin Concent 30.7L, Red Cell Distribution Width 16.5H, Platelet Count 229, Mean Platelet Volume 8.1, Neutrophils (%) (Auto) 71.8 , Lymphocytes (%) (Auto) 13.0L, Monocytes (%) (Auto) 13.7H, Eosinophils (%) ( Auto) 0.9, Basophils (%) (Auto) 0.6, Sodium Level 141, Potassium Level 3.4L, Chloride Level 106, Carbon Dioxide Level 17L, Anion Gap 18H, Blood Urea Nitrogen 52H, Creatinine 4.0H, Estimat Glomerular Filtration Rate , Glucose Level 120H, Uric Acid 12.0H, Calcium Level 8.6, Phosphorus Level 3.7, Magnesium Level 2.1, Total Bilirubin 0.3, Aspartate Amino Transf (AST/SGOT) 17, Alanine Aminotransferase (ALT/SGPT) 15, Alkaline Phosphatase 78, Pro-B-Type Natriuretic Peptide 032633M, Total Protein 7.5, Albumin 2.6L, Globulin 4.9, Albumin/ Globulin Ratio 0.5L, Thyroid Stimulating Hormone (TSH) 0.468, Coccidioides Antibody (Comp Fix) [Pending], TB Test (T-Spot) [Pending], TB Test Nil Control ( T-Spot) [Pending], TB Test Panel A (T-Spot) [Pending], TB Test Panel B (T-Spot) [Pending], TB Test Positive Control (T-Spot) [Pending] 06/18/18 09:30: White Blood Count 8.3, Red Blood Count 3.74L, Hemoglobin 9.8L, Hematocrit 32.5L , Mean Corpuscular Volume 87, Mean Corpuscular Hemoglobin 26.1L, Mean Corpuscular Hemoglobin Concent 30.1L, Red Cell Distribution Width 16.3H, Platelet Count 229, Mean Platelet Volume 7.3, Neutrophils (%) (Auto) 68.3, Lymphocytes (%) (Auto) 13.0L, Monocytes (%) (Auto) 16.7H, Eosinophils (%) (Auto ) 1.4, Basophils (%) (Auto) 0.7, Activated Partial Thromboplast Time 28 Height (Feet): 5 Height (Inches): 9.00 Weight (Pounds): 129 General Appearance: no apparent distress, lethargic Cardiovascular: tachycardia Respiratory/Chest: decreased breath sounds Abdomen: distended Marlon Covington MD Jun 18, 2018 10:28
[2018-06-18 12:00] VITALS: BP 133/78
--- NOTE | 2018-06-18 12:20 | General Progress Note ---
Assessment/Plan Status: stable Assessment/Plan encephalopathy improving anxiety d/o -Ativan prn the pt may benefit from short term sniff Subjective Date patient seen: Jun 18, 2018 Neurologic/Psychiatric: Reports: anxiety, depressed Allergies: Coded Allergies: No Known Allergies (Unverified , 06/16/18) Subjective the pt more lucid however forgetful and disoriented to place Objective Last 24 Hour Vital Signs Date Time Temp Pulse Resp B/P (MAP) Pulse Ox O2 Delivery O2 Flow Rate FiO2 06/18/18 12:00 Nasal Cannula 3.0 06/18/18 08:39 125/70 06/18/18 08:38 91 125/70 06/18/18 08:21 92 06/18/18 08:00 97.9 91 18 125/70 (88) 95 97.9 06/18/18 08:00 Nasal Cannula 3.0 06/18/18 04:00 92 06/18/18 04:00 Nasal Cannula 3.0 06/18/18 04:00 98.1 93 20 130/84 (99) 94 98.1 06/18/18 00:00 97.4 93 20 110/72 (85) 97 97.4 06/18/18 00:00 93 06/18/18 00:00 Nasal Cannula 3.0 06/17/18 20:53 97 108/67 06/17/18 20:06 Nasal Cannula 3.0 32 06/17/18 20:06 96 Nasal Cannula 3.0 32 06/17/18 20:00 Nasal Cannula 3.0 06/17/18 20:00 97.5 95 20 108/67 (81) 94 97.5 06/17/18 20:00 97 06/17/18 16:00 98.2 94 20 129/71 (90) 92 98.2 06/17/18 16:00 Nasal Cannula 3.0 06/17/18 16:00 101 Intake and Output 06/17/18 06/18/18 19:00 07:00 Intake Total 1000 ml 55 ml Output Total 200 ml Balance 1000 ml -145 ml Intake Oral 500 ml IV Total 500 ml 55 ml Output Urine Total 200 ml # Voids 2 Laboratory Tests 06/17/18 15:15: Troponin I 0.220H, C-Reactive Protein, Quantitative 12.6H 06/17/18 21:00: Troponin I 0.179H 06/18/18 01:05: Histoplasma Antigen [Pending] 06/18/18 03:53: Troponin I 0.206H, White Blood Count 8.3, Red Blood Count 3.50L, Hemoglobin 9.4L , Hematocrit 30.6L, Mean Corpuscular Volume 87, Mean Corpuscular Hemoglobin 26.8L, Mean Corpuscular Hemoglobin Concent 30.7L, Red Cell Distribution Width 16.5H, Platelet Count 229, Mean Platelet Volume 8.1, Neutrophils (%) (Auto) 71.8 , Lymphocytes (%) (Auto) 13.0L, Monocytes (%) (Auto) 13.7H, Eosinophils (%) ( Auto) 0.9, Basophils (%) (Auto) 0.6, Sodium Level 141, Potassium Level 3.4L, Chloride Level 106, Carbon Dioxide Level 17L, Anion Gap 18H, Blood Urea Nitrogen 52H, Creatinine 4.0H, Estimat Glomerular Filtration Rate , Glucose Level 120H, Uric Acid 12.0H, Calcium Level 8.6, Phosphorus Level 3.7, Magnesium Level 2.1, Total Bilirubin 0.3, Aspartate Amino Transf (AST/SGOT) 17, Alanine Aminotransferase (ALT/SGPT) 15, Alkaline Phosphatase 78, Pro-B-Type Natriuretic Peptide 283737T, Total Protein 7.5, Albumin 2.6L, Globulin 4.9, Albumin/ Globulin Ratio 0.5L, Thyroid Stimulating Hormone (TSH) 0.468, Coccidioides Antibody (Comp Fix) [Pending], TB Test (T-Spot) [Pending], TB Test Nil Control ( T-Spot) [Pending], TB Test Panel A (T-Spot) [Pending], TB Test Panel B (T-Spot) [Pending], TB Test Positive Control (T-Spot) [Pending] 06/18/18 09:30: White Blood Count 8.3, Red Blood Count 3.74L, Hemoglobin 9.8L, Hematocrit 32.5L , Mean Corpuscular Volume 87, Mean Corpuscular Hemoglobin 26.1L, Mean Corpuscular Hemoglobin Concent 30.1L, Red Cell Distribution Width 16.3H, Platelet Count 229, Mean Platelet Volume 7.3, Neutrophils (%) (Auto) 68.3, Lymphocytes (%) (Auto) 13.0L, Monocytes (%) (Auto) 16.7H, Eosinophils (%) (Auto ) 1.4, Basophils (%) (Auto) 0.7, Activated Partial Thromboplast Time 28 Height (Feet): 5 Height (Inches): 9.00 Weight (Pounds): 129 General Appearance: no apparent distress, alert Umu Rojas MD Jun 18, 2018 12:20
--- NOTE | 2018-06-18 12:45 | Cardiology Progress Note ---
Assessment/Plan Assessment/Plan 1. Hypotension likely due to acute RV failure (significant drop of RVEF compared to echo in March 2018 at [facility]), lasix on hold, PE protocol folowed by Dr. Moran, responded well to fluid therapy. No echo evidence of acute left heart failure, i.e. E/E' ~10. 2. OHT in 1997, with vasculopathy, s/p VELASQUEZ x1 in mid RCA, s/p VELASQUEZ x2 in mid LAD following lateral wall STEMI in March with stunned myocardium, responded well to revascularization, LVEF restored to 40% (his baseline), on prograf, cellcept and prednisone. 3. ICM with LVEF at 40% with anteroseptal wall hypokinesia, pseudo-normal LV physiology per recent echo. 4. Severe pulmonary HTN, ? combination of LHF, CKD and RCA disease, PE protocol in progress. 5. CAD, on DAPT, Brilinta not in this hospital's formulary, plavix loaded on . Subjective Subjective Sinus rhythm at 91. Objective Last 24 Hour Vital Signs Date Time Temp Pulse Resp B/P (MAP) Pulse Ox O2 Delivery O2 Flow Rate FiO2 06/18/18 12:00 Nasal Cannula 3.0 06/18/18 08:39 125/70 06/18/18 08:38 91 125/70 06/18/18 08:21 92 06/18/18 08:00 97.9 91 18 125/70 (88) 95 97.9 06/18/18 08:00 Nasal Cannula 3.0 06/18/18 04:00 92 06/18/18 04:00 Nasal Cannula 3.0 06/18/18 04:00 98.1 93 20 130/84 (99) 94 98.1 06/18/18 00:00 97.4 93 20 110/72 (85) 97 97.4 06/18/18 00:00 93 06/18/18 00:00 Nasal Cannula 3.0 06/17/18 20:53 97 108/67 06/17/18 20:06 Nasal Cannula 3.0 32 06/17/18 20:06 96 Nasal Cannula 3.0 32 06/17/18 20:00 Nasal Cannula 3.0 06/17/18 20:00 97.5 95 20 108/67 (81) 94 97.5 06/17/18 20:00 97 06/17/18 16:00 98.2 94 20 129/71 (90) 92 98.2 06/17/18 16:00 Nasal Cannula 3.0 06/17/18 16:00 101 Intake and Output 06/17/18 06/18/18 19:00 07:00 Intake Total 1000 ml 55 ml Output Total 200 ml Balance 1000 ml -145 ml Intake Oral 500 ml IV Total 500 ml 55 ml Output Urine Total 200 ml # Voids 2 2D Echo: EF~40%, anteroseptal HK, RVE, RV systolic dysfxn, E/E'~10,pseudo-nl LVDD Laboratory Tests Test 06/17/18 15:15 06/17/18 21:00 06/18/18 01:05 06/18/18 03:53 Troponin I 0.220 ng/mL (0.000-0.056) 0.179 ng/mL (0.000-0.056) 0.206 ng/mL (0.000-0.056) C-Reactive Protein, Quantitative 12.6 mg/dL (0.00-0.90) H Histoplasma Antigen Pending White Blood Count 8.3 K/UL (4.8-10.8) Red Blood Count 3.50 M/UL (4.70-6.10) L Hemoglobin 9.4 G/DL (14.2-18.0) L Hematocrit 30.6 % (42.0-52.0) L Mean Corpuscular Volume 87 FL (80-99) Mean Corpuscular Hemoglobin 26.8 PG (27.0-31.0) L Mean Corpuscular Hemoglobin Concent 30.7 G/DL (32.0-36.0) L Red Cell Distribution Width 16.5 % (11.6-14.8) H Platelet Count 229 K/UL (150-450) Mean Platelet Volume 8.1 FL (6.5-10.1) Neutrophils (%) (Auto) 71.8 % (45.0-75.0) Lymphocytes (%) (Auto) 13.0 % (20.0-45.0) L Monocytes (%) (Auto) 13.7 % (1.0-10.0) H Eosinophils (%) (Auto) 0.9 % (0.0-3.0) Basophils (%) (Auto) 0.6 % (0.0-2.0) Sodium Level 141 MMOL/L (136-145) Potassium Level 3.4 MMOL/L (3.5-5.1) L Chloride Level 106 MMOL/L (98-107) Carbon Dioxide Level 17 MMOL/L (21-32) L Anion Gap 18 mmol/L (5-15) H Blood Urea Nitrogen 52 mg/dL (7-18) H Creatinine 4.0 MG/DL (0.55-1.30) H Estimat Glomerular Filtration Rate mL/min (>60) Glucose Level 120 MG/DL (74-106) H Uric Acid 12.0 MG/DL (2.6-7.2) H Calcium Level 8.6 MG/DL (8.5-10.1) Phosphorus Level 3.7 MG/DL (2.5-4.9) Magnesium Level 2.1 MG/DL (1.8-2.4) Total Bilirubin 0.3 MG/DL (0.2-1.0) Aspartate Amino Transf (AST/SGOT) 17 U/L (15-37) Alanine Aminotransferase (ALT/SGPT) 15 U/L (12-78) Alkaline Phosphatase 78 U/L (46-116) Pro-B-Type Natriuretic Peptide 500538 pg/mL (0-125) H Total Protein 7.5 G/DL (6.4-8.2) Albumin 2.6 G/DL (3.4-5.0) L Globulin 4.9 g/dL Albumin/Globulin Ratio 0.5 (1.0-2.7) L Thyroid Stimulating Hormone (TSH) 0.468 uiU/mL (0.358-3.740) Coccidioides Antibody (Comp Fix) Pending TB Test (T-Spot) Pending TB Test Nil Control (T-Spot) Pending TB Test Panel A (T-Spot) Pending TB Test Panel B (T-Spot) Pending TB Test Positive Control (T-Spot) Pending Test 06/18/18 09:30 White Blood Count 8.3 K/UL (4.8-10.8) Red Blood Count 3.74 M/UL (4.70-6.10) L Hemoglobin 9.8 G/DL (14.2-18.0) L Hematocrit 32.5 % (42.0-52.0) L Mean Corpuscular Volume 87 FL (80-99) Mean Corpuscular Hemoglobin 26.1 PG (27.0-31.0) L Mean Corpuscular Hemoglobin Concent 30.1 G/DL (32.0-36.0) L Red Cell Distribution Width 16.3 % (11.6-14.8) H Platelet Count 229 K/UL (150-450) Mean Platelet Volume 7.3 FL (6.5-10.1) Neutrophils (%) (Auto) 68.3 % (45.0-75.0) Lymphocytes (%) (Auto) 13.0 % (20.0-45.0) L Monocytes (%) (Auto) 16.7 % (1.0-10.0) H Eosinophils (%) (Auto) 1.4 % (0.0-3.0) Basophils (%) (Auto) 0.7 % (0.0-2.0) Activated Partial Thromboplast Time 28 SEC (23-33) Microbiology Date/Time Source Procedure Growth Status 06/16/18 19:40 Blood Blood Culture - Preliminary NO GROWTH AFTER 24 HOURS Resulted 06/16/18 19:25 Blood Blood Culture - Preliminary NO GROWTH AFTER 24 HOURS Resulted 06/16/18 20:40 Urine,Clean Catch Urine Culture - Preliminary NO GROWTH AFTER 24 HOURS Resulted Objective HEENT: Atraumatic and normocephalic. Anicteric. Pupils are equal, round, reactive to light and accommodation. Extraocular muscles are intact. NECK: JVP less than 5 cm. No carotid bruits. Carotid upstrokes 2+ bilaterally. CARDIOVASCULAR: Normal S1 and S2. Regular rate and rhythm. No murmurs, gallops, or rubs. There is the presence of possible loop recorder underneath the skin in the left precordial area. PMI is at the sixth intercostal space in the anterior axial line. LUNGS: Clear to auscultation bilaterally. ABDOMEN: Soft, nontender, and nondistended. No hepatosplenomegaly. Positive bowel sounds. EXTREMITIES: No evidence of edema, clubbing, or cyanosis. Kelvin Tenorio MD Jun 18, 2018 12:45
--- NOTE | 2018-06-18 13:07 | Infectious Diseases Prog Note ---
Assessment/Plan Assessment/Plan A; COPD Lung cavitary lesion CHF DM s/p heart transplant DM P; Continue Zithromax & Rocephin will be transferred to [facility] Subjective ROS Limited/Unobtainable: No Constitutional: Reports: no symptoms Respiratory: Reports: shortness of breath, productive cough Cardiovascular: Reports: dyspnea on exertion Gastrointestinal/Abdominal: Reports: no symptoms Genitourinary: Reports: no symptoms Allergies: Coded Allergies: No Known Allergies (Unverified , 06/16/18) Objective Vital Signs Last 24 Hour Vital Signs Date Time Temp Pulse Resp B/P (MAP) Pulse Ox O2 Delivery O2 Flow Rate FiO2 06/18/18 12:00 Nasal Cannula 3.0 06/18/18 08:39 125/70 06/18/18 08:38 91 125/70 06/18/18 08:21 92 06/18/18 08:00 97.9 91 18 125/70 (88) 95 97.9 06/18/18 08:00 Nasal Cannula 3.0 06/18/18 04:00 92 06/18/18 04:00 Nasal Cannula 3.0 06/18/18 04:00 98.1 93 20 130/84 (99) 94 98.1 06/18/18 00:00 97.4 93 20 110/72 (85) 97 97.4 06/18/18 00:00 93 06/18/18 00:00 Nasal Cannula 3.0 06/17/18 20:53 97 108/67 06/17/18 20:06 Nasal Cannula 3.0 32 06/17/18 20:06 96 Nasal Cannula 3.0 32 06/17/18 20:00 Nasal Cannula 3.0 06/17/18 20:00 97.5 95 20 108/67 (81) 94 97.5 06/17/18 20:00 97 06/17/18 16:00 98.2 94 20 129/71 (90) 92 98.2 06/17/18 16:00 Nasal Cannula 3.0 06/17/18 16:00 101 Height (Feet): 5 Height (Inches): 9.00 Weight (Pounds): 129 HEENT: mucous membranes moist Respiratory/Chest: lungs clear Cardiovascular: normal rate Abdomen: soft, non tender Extremities: no edema Neurologic/Psychiatric: alert, oriented x 3, responsive Musculoskeletal: atrophy Microbiology Date/Time Source Procedure Growth Status 06/16/18 19:40 Blood Blood Culture - Preliminary NO GROWTH AFTER 24 HOURS Resulted 06/16/18 19:25 Blood Blood Culture - Preliminary NO GROWTH AFTER 24 HOURS Resulted 06/16/18 20:40 Urine,Clean Catch Urine Culture - Preliminary NO GROWTH AFTER 24 HOURS Resulted Laboratory Tests Test 06/17/18 15:15 06/17/18 21:00 06/18/18 01:05 06/18/18 03:53 Troponin I 0.220 ng/mL (0.000-0.056) 0.179 ng/mL (0.000-0.056) 0.206 ng/mL (0.000-0.056) C-Reactive Protein, Quantitative 12.6 mg/dL (0.00-0.90) H Histoplasma Antigen Pending White Blood Count 8.3 K/UL (4.8-10.8) Red Blood Count 3.50 M/UL (4.70-6.10) L Hemoglobin 9.4 G/DL (14.2-18.0) L Hematocrit 30.6 % (42.0-52.0) L Mean Corpuscular Volume 87 FL (80-99) Mean Corpuscular Hemoglobin 26.8 PG (27.0-31.0) L Mean Corpuscular Hemoglobin Concent 30.7 G/DL (32.0-36.0) L Red Cell Distribution Width 16.5 % (11.6-14.8) H Platelet Count 229 K/UL (150-450) Mean Platelet Volume 8.1 FL (6.5-10.1) Neutrophils (%) (Auto) 71.8 % (45.0-75.0) Lymphocytes (%) (Auto) 13.0 % (20.0-45.0) L Monocytes (%) (Auto) 13.7 % (1.0-10.0) H Eosinophils (%) (Auto) 0.9 % (0.0-3.0) Basophils (%) (Auto) 0.6 % (0.0-2.0) Sodium Level 141 MMOL/L (136-145) Potassium Level 3.4 MMOL/L (3.5-5.1) L Chloride Level 106 MMOL/L (98-107) Carbon Dioxide Level 17 MMOL/L (21-32) L Anion Gap 18 mmol/L (5-15) H Blood Urea Nitrogen 52 mg/dL (7-18) H Creatinine 4.0 MG/DL (0.55-1.30) H Estimat Glomerular Filtration Rate mL/min (>60) Glucose Level 120 MG/DL (74-106) H Uric Acid 12.0 MG/DL (2.6-7.2) H Calcium Level 8.6 MG/DL (8.5-10.1) Phosphorus Level 3.7 MG/DL (2.5-4.9) Magnesium Level 2.1 MG/DL (1.8-2.4) Total Bilirubin 0.3 MG/DL (0.2-1.0) Aspartate Amino Transf (AST/SGOT) 17 U/L (15-37) Alanine Aminotransferase (ALT/SGPT) 15 U/L (12-78) Alkaline Phosphatase 78 U/L (46-116) Pro-B-Type Natriuretic Peptide 535689 pg/mL (0-125) H Total Protein 7.5 G/DL (6.4-8.2) Albumin 2.6 G/DL (3.4-5.0) L Globulin 4.9 g/dL Albumin/Globulin Ratio 0.5 (1.0-2.7) L Thyroid Stimulating Hormone (TSH) 0.468 uiU/mL (0.358-3.740) Coccidioides Antibody (Comp Fix) Pending TB Test (T-Spot) Pending TB Test Nil Control (T-Spot) Pending TB Test Panel A (T-Spot) Pending TB Test Panel B (T-Spot) Pending TB Test Positive Control (T-Spot) Pending Test 06/18/18 09:30 White Blood Count 8.3 K/UL (4.8-10.8) Red Blood Count 3.74 M/UL (4.70-6.10) L Hemoglobin 9.8 G/DL (14.2-18.0) L Hematocrit 32.5 % (42.0-52.0) L Mean Corpuscular Volume 87 FL (80-99) Mean Corpuscular Hemoglobin 26.1 PG (27.0-31.0) L Mean Corpuscular Hemoglobin Concent 30.1 G/DL (32.0-36.0) L Red Cell Distribution Width 16.3 % (11.6-14.8) H Platelet Count 229 K/UL (150-450) Mean Platelet Volume 7.3 FL (6.5-10.1) Neutrophils (%) (Auto) 68.3 % (45.0-75.0) Lymphocytes (%) (Auto) 13.0 % (20.0-45.0) L Monocytes (%) (Auto) 16.7 % (1.0-10.0) H Eosinophils (%) (Auto) 1.4 % (0.0-3.0) Basophils (%) (Auto) 0.7 % (0.0-2.0) Activated Partial Thromboplast Time 28 SEC (23-33) Current Medications Medications (Trade) Dose Ordered Sig/Trung Route PRN Reason Start Time Stop Time Status Last Admin Dose Admin Acetaminophen (Tylenol) 650 mg Q6H PRN ORAL Mild Pain/Temp > 100.5 06/17/18 00:00 07/17/18 00:00 Acetaminophen/ Hydrocodone Bitart ([place] 10/325) 1 tab Q4H PRN ORAL For Pain 06/17/18 00:00 06/24/18 00:00 Albuterol/ Ipratropium (Albuterol/ Ipratropium) 3 ml Q4H PRN HHN Shortness of Breath 06/17/18 00:00 06/22/18 00:00 Aspirin (ASA) 81 mg DAILY ORAL 06/17/18 09:00 07/17/18 08:59 06/18/18 08:37 Atorvastatin Calcium (Lipitor) 20 mg BEDTIME ORAL 06/17/18 21:00 07/17/18 20:59 06/17/18 20:52 Azithromycin (Zithromax) 250 mg DAILY ORAL 06/18/18 09:00 06/25/18 08:59 06/18/18 08:39 Carvedilol (Coreg) 3.125 mg EVERY 12 HOURS ORAL 06/17/18 09:00 07/17/18 08:59 06/18/18 08:38 Ceftriaxone Sodium 1 gm/ Dextrose 55 ml @ 110 mls/hr Q24H IVPB 06/17/18 21:00 06/24/18 20:59 06/17/18 20:52 Clopidogrel Bisulfate (Plavix) 75 mg DAILY ORAL 06/18/18 09:00 07/18/18 08:59 06/18/18 08:38 Cyproheptadine HCl (Periactin) 4 mg THREE TIMES A DAY ORAL 06/17/18 09:00 07/17/18 08:59 06/18/18 08:37 Dextrose (Dextrose 50%) 25 ml STAT PRN IV Hypoglycemia 06/17/18 00:00 07/17/18 00:00 Dextrose (Dextrose 50%) 50 ml STAT PRN IV Hypoglycemia 06/17/18 00:00 07/17/18 00:00 Heparin Sodium/ Dextrose 500 ml @ 21.146 mls/ hr adjust per protocol IV 06/18/18 10:00 07/18/18 09:59 06/18/18 09:29 Insulin Aspart (NovoLOG) AC+HS SUBQ 06/17/18 06:30 07/17/18 06:29 06/18/18 06:43 Iopamidol (Isovue-300 100ml) 100 ml NOW PRN INJ Radiology Procedure 06/16/18 19:45 Iopamidol (Isovue-370 150ml) 150 ml NOW PRN INJ Radiology Procedure 06/16/18 19:45 06/18/18 19:36 Isosorbide Mononitrate (Imdur) 30 mg DAILY ORAL 06/17/18 09:00 07/17/18 08:59 06/18/18 08:39 Ondansetron HCl (Zofran) 4 mg Q6H PRN IVP Nausea & Vomiting 06/17/18 00:00 07/17/18 00:00 Pantoprazole (Protonix) 40 mg EVERY 12 HOURS ORAL 06/17/18 09:00 07/17/18 08:59 06/18/18 08:37 Prednisone (predniSONE) 5 mg DAILY ORAL 06/17/18 09:00 07/17/18 08:59 06/18/18 08:37 Sirolimus (Rapamune) 1 mg DAILY ORAL 06/17/18 09:30 07/17/18 09:29 06/18/18 08:38 Tacrolimus (Prograf) 3 mg Q24HRS ORAL 06/17/18 16:00 07/17/18 15:59 06/17/18 16:04 Tacrolimus (Prograf) 4 mg DAILY ORAL 06/17/18 09:00 07/17/18 08:59 06/18/18 08:39 Sami Leiva MD Jun 18, 2018 13:07
--- NOTE | 2018-06-18 14:15 | Diagnostic Imaging Report ---
Indication: Chest pain Technique: A ventilation/perfusion scan was performed. Ventilation was performed utilizing 40 mCi of Technetium 99m-DTPA. Perfusion was performed with 5.2 mCi of technetium 99m-MAA injected intravenously. Multiple side by side projections obtained. Findings: Poor ventilation scan with clumping of radiotracer centrally.. There are bilateral small to moderate size perfusion defects, some matched and others seemingly mismatched. IMPRESSION: Intermediate probability for pulmonary embolism. Recommend further evaluation with CT angiogram of the chest.
[2018-06-18] MEDS ORDERED: NS 275ml ONE (14:53)
[2018-06-18] MEDS ORDERED: Tubing IV Secondary IV ONE (14:53)
[2018-06-18 16:00] VITALS: BP 149/91
--- NOTE | 2018-06-19 09:49 | Discharge Summary ---
Discharge Summary Discharge Summary _ DATE OF ADMISSION: 06/16/2018 DATE OF DISCHARGE: 06/18/2018 CONSULTANTS: Dr. Sami Covington BRIEF HOSPITAL COURSE: Patient is a 72-year-old male, who is status post heart transplant in 1997, presented to [facility] complaining of weakness and shortness of breath for a couple of days. He recently had a NSTEMI and was at [facility] about a month ago. He has medical history significant for cardiomyopathy, chronic pain syndrome, gout, [id number] diabetes mellitus, hypertension, GERD and hyperlipidemia. On evaluation at ED, he was hypotensive, systolic blood pressure in the 80s. He required central line placement for pressors. A central line was then inserted to the right femoral vein. Blood work with no leukocytosis, BUN was 54 , creatinine 4.3. Urine showed 10-15 RBC, too many to count WBC, 3+ leukocyte esterase, negative nitrite, 4+ occult blood and 3+ protein. He was given IV hydration. Troponin was 0.258. EKG was in normal sinus rhythm with nonspecific ST to T wave changes. Chest x-ray with no acute disease. Head CT with chronic age-related changes and multiple old infarcts. Negative for acute bleed or mass effect. He had a CT of the chest abdomen and pelvis that showed a spiculated 2.7 centimeter mass in the superior segment of the right lower lobe with a central cavity. He was then admitted for further evaluation. He was hypotensive. He was given albumin bolus. Hypotension likely due to acute RV failure. He had a an echocardiogram done. Patient has acute RV failure as there was a significant drop of RVEF compared to echocardiogram done in March 2018 at [facility]. Lasix was placed on hold. There was no echo evidence of acute left heart failure. He was loaded with Plavix and aspirin. Kidney function was monitored. Kidney ultrasound showed echogenic kidneys, negative for hydronephrosis. He was continued on his transplant medications including to chronic most, Rapamune and prednisone. He was started on ceftriaxone. Zithromax was added. He had elevated d-dimer 10. Venous duplex of lower scan was negative. He was started on heparin drip. VQ scan showed intermediate probability for PE. CT findings will need biopsy. Due to patient's other comorbidities, patient was transferred to a higher level of care. 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 DISCHARGE MEDICATIONS: Refer to Discharge Medication List. I have been assigned to dictate discharge summary on this account, and I was not involved in the patient's management. Jazmyn Nance NP Jun 19, 2018 09:49
--- NOTE | 2018-06-20 14:14 | Diagnostic Imaging Report ---
APPROVED REPORT CPT Code: 74035 Present Symptoms Shortness of breath Comments: Hx of a Line at groin area RIGHT LEG: Venous imaging reveals a patent deep venous system. There is no evidence of thrombus within the mid superficial femoral, popliteal or tibial segments. The greater saphenous vein is also within normal limits. Doppler indicates normal spontaneous flow within these segments. The right common femoral, superficial femoral and saphenous veins were not well visualized, due to a line and bandages. LEFT LEG: Venous imaging reveals a patent deep venous system. There is no evidence of thrombus within the femoral, popliteal or tibial segments. The greater saphenous vein is also within normal limits. Doppler indicates normal spontaneous flow within these segments.
== END 2018-06-18 18:05 | disposition short-term general hospital (02) | DRG 280 ==
LOC: EDBD 18:49 → EDBEDREQ 19:04 → EMR 19:20 → ICU 19:55 → EDBEDREQ 20:26 → EDBEDREQSVC 21:41 → EDBEDREQ 21:41 → 2W 22:20
PROC: 06HM33Z Insertion of Infusion Device into Right Femoral Vein, Percutaneous Approach (ICD-10-PCS; principal; 2018-06-16)
DX: I50.811 Acute right heart failure (principal); I21.4 Non-ST elevation (NSTEMI) myocardial infarction; I26.99 Other pulmonary embolism without acute cor pulmonale; G93.40 Encephalopathy, unspecified; N39.0 Urinary tract infection, site not specified; N17.9 Acute kidney failure, unspecified; Z94.1 Heart transplant status; I12.9 Hypertensive chronic kidney disease with stage 1 through stage 4 chronic kidney disease, or unspecified chronic kidney disease; Z82.49 Family history of ischemic heart disease and other diseases of the circulatory system; G89.4 Chronic pain syndrome; Z87.891 Personal history of nicotine dependence; Z86.73 Personal history of transient ischemic attack (TIA), and cerebral infarction without residual deficits; D64.9 Anemia, unspecified; I25.10 Atherosclerotic heart disease of native coronary artery without angina pectoris; Z95.5 Presence of coronary angioplasty implant and graft; Z95.0 Presence of cardiac pacemaker; E11.22 Type 2 diabetes mellitus with diabetic chronic kidney disease; N18.9 Chronic kidney disease, unspecified; I27.20 Pulmonary hypertension, unspecified; E88.09 Other disorders of plasma-protein metabolism, not elsewhere classified; Z79.84 Long term (current) use of oral hypoglycemic drugs; Z79.02 Long term (current) use of antithrombotics/antiplatelets; J44.9 Chronic obstructive pulmonary disease, unspecified; D63.8 Anemia in other chronic diseases classified elsewhere; K57.90 Diverticulosis of intestine, part unspecified, without perforation or abscess without bleeding; I25.5 Ischemic cardiomyopathy; D72.821 Monocytosis (symptomatic); R06.02 Shortness of breath; F41.9 Anxiety disorder, unspecified; K21.9 Gastro-esophageal reflux disease without esophagitis; M10.9 Gout, unspecified; F19.11 Other psychoactive substance abuse, in remission
CPT/HCPCS: 36415; 36600; 70450; 71045; 71250; 74176; 76770; 78579; 78580; 80048; 80053; 80061; 80197; 81003; 82550; 82553; 82570; 82607; 82728; 82746; 82803; 82962; 83540; 83550; 83605; 83615; 83690; 83735; 83880; 84100; 84300; 84443; 84484; 84550; 84560; 85025; 85044; 85379; 85384; 85610; 85651; 85730; 86140; 86635; 87040; 87086; 87181; 87385; 89050; 93005; 93306; 93970; 94760; A9503; J1815; J8499